=== PATIENT | male | born 1940 | race Caucasian/White ===

== ENCOUNTER 2016-07-09 09:33 | Outpatient (CLI) | payer MEDICARE, BC ==
[~2016-07-09] VITALS: Ht 177.8 cm; Wt 95.5 kg
--- NOTE | ~2016-07-09 | HEMODYNAMI ---
PATIENT:PAUL ANDRADE III MEDICAL RECORD: [id number] : 42 LOCATION:D.CAT ADMISSION DATE: 07/09/16 Generatedon:07/09/201612:53 Patient name: PAUL ANDRADE Patient #: [id number] SSN: : 1940 Date of study: 07/09/2016 Page: Of Hemodynamic Procedure Report Patient Data Patient Demographics Procedure consent was obtained First Name: PAUL Gender: Male Last Name: RAYMOND Suffix: III Middle Initial: A : 1940 Patient #: [id number] Age: 76 year(s) Race: Additional ID: [id number] Contact details Address: [facility] [place] State: [place] City: [place] Zip code: [address] Past Medical History History of disease Date Diagnosis Comments CAD CHF->BO[place] Hypertension LV dysfunction Allergies: No known allergies Admission Admission Data Admission Date: 07/09/2016 Admission Time: 9:33 Height (in.): 71 BSA: 2.15 (m2) Height (cm.): 180.34 BMI: 29.29 (kg/m2) Weight (lbs.): 210 Weight (kg.): 95.25 Lab Results Lab Result Date: 07/09/2016 Lab Result Time: 10:00 Biochemistry Name Units Result Min Max BUN mg/dl 19 --(----)*- 7 18 Creatinine mg/dl 0.9 --(-*--)-- 0.6 1.3 CBC Name Units Result Min Max Hematocrit % 52.9 --(---*)-- 42 54 Hemoglobin g/dl 18.6 --(----)-* 13.5 17.5 Procedure Procedure Types Cath Procedure Diagnostic Procedure [facility] w/Coronaries w/Grafts FFR/IVUS Intra-Coronary IVUS Initial PCI Procedure SVG-BMS/JIMMIE Initial Miscellaneous Procedures Moderate Sedation up to 45 minutes Procedure Description Procedure Date Procedure Date: 07/09/2016 Procedure Start Time: 12:20 Procedure End Time: 12:51 Procedure Staff Name Function Daron Ozuna MD Performing Physician Dian English RN Nurse Dhruv Miguel RT Monitor Criss Garcia RT Scrub Kevin Davis RT Monitor Procedure Data Cath Procedure Fluoroscopy Diagnostic fluoroscopy Total fluoroscopy Time: 9.8 time: 9.8 min min Diagnostic fluoroscopy Total fluoroscopy dose: dose: 1605 mGy 1605 mGy Contrast Material Contrast Material Type Amount (ml) Isovue 300 195 Entry Location Entry Primary Successful Side Size Upsize Upsize Entry Closure Succes sful Closure Location (Fr) 1 (Fr) 2 (Fr) Remarks Device Remarks Femoral Right 5 Fr 6 Fr Exoseal artery Short Estimated blood loss: 10 ml Diagnostic catheters Device Type Used For End Catheter Placement Cordis 5Fr Pigtail Procedure Catheter (MP) Cordis 5Fr JL 4.0 Procedure Catheter (MP) Cordis 5Fr 3DRC Catheter Procedure (MP) Diagnostic Infinity 5Fr Procedure AR 2 MOD catheter Procedure Complications No complications Procedure Medications Medication Administration Route Dosage Oxygen NC 2 l/min Lidocaine 2% added to field 20 Heparin Flush Bag added to field 2 bags (1000units/500ml NS) 0.9% NaCl I.V. 100 ml/hr Versed I.V. 1 mg Fentanyl I.V. 50 mcg Versed I.V. 1 mg Fentanyl I.V. 50 mcg Versed I.V. 1 mg Fentanyl I.V. 50 mcg Heparin Bolus I.V. 4000 units Nitroglycerin IC/IA I.C. 200 mcg Versed I.V. 1 mg Fentanyl I.V. 50 mcg Hemodynamics Rest BSA: 2.15 (m2) HGB: 18.6 (g/dl) O2 Consumption: Estimated: 242.48 (ml/min) O2 Co nsumption indexed: Estimated:112.78 (ml/min/m) Heart Rate: 64 (bpm) Snapshots Pre Cath Intra NCS Post Cath Vital Signs Time Heart Resp SPO2 etCO2 [id number] NIBP (mmHg) Rhythm Pain Sedation Rate (ipm) (%) (mmHg) (mmHg) Status Level (bpm) 11:59:21 62 16 98 0 0 156/88(134) Paced 0 (11) 10(A) , No pain 12:03:47 61 14 98 0 0 150/86(124) Paced 0 (11) 10(A) , No pain 12:08:05 64 16 97 0 0 137/80(116) Paced 0 (11) 10(A) , No pain 12:12:29 65 15 96 0 0 147/79(119) Paced 0 (11) 10(A) , No pain 12:16:56 67 16 96 0 0 145/78(95) Paced 0 (11) 10(A) , No pain 12:21:22 68 16 96 0 0 141/84(102) Paced 0 (11) 9(A) , No pain 12:25:40 68 15 95 0 0 143/87(121) Paced 0 (11) 9(A) , No pain 12:30:04 68 15 96 0 0 149/85(118) Paced 0 (11) 9(A) , No pain 12:34:35 63 14 96 0 0 155/78(119) Paced 0 (11) 9(A) , No pain 12:38:57 58 15 97 0 0 147/82(105) Paced 0 (11) 9(A) , No pain 12:43:23 66 16 96 0 0 137/78(107) Paced 0 (11) 9(A) , No pain 12:47:39 67 15 95 0 0 129/71(111) Paced 0 (11) 10(A) , No pain 12:51:59 65 12 96 0 0 146/83(111) Paced 0 (11) 10(A) , No pain Medications Time Medication Route Dose Verified Delivered Reason Notes Effectiveness by by 12:01:24 Oxygen NC 2 Daron Buffie used for l/min Laith English RN procedure 12:01:33 Lidocaine 2% added 20ml Daron Daron for local to vial Laith Ozuna MD anesthetic field 12:04:23 Heparin Flush added 2 Daron Daron used for Bag to bags Laith Ozuna MD procedure (1000units/500ml field NS) 12:04:33 0.9% NaCl I.V. 100 Daron Buffie Per physician ml/hr Laith English RN 12:17:21 Versed I.V. 1 mg Daron Buffie for sedation Laith English RN 12:17:27 Fentanyl I.V. 50 Daron Buffie for sedation mcg Laith English RN 12:20:27 Versed I.V. 1 mg Daron Buffie for sedation Laith English RN 12:20:31 Fentanyl I.V. 50 Daron Biggs for sedation mcg Laith English RN 12:23:50 Versed I.V. 1 mg Daron Biggs for sedation Laith English RN 12:23:54 Fentanyl I.V. 50 Daron Biggs for sedation mcg Laith English RN 12:30:45 Heparin Bolus I.V. 4000 Daron Biggs for verifi ed units Laith English RN anticoagulation with dr ozuna 12:43:17 Nitroglycerin I.C. 200 Daron Neri for IC/IA mcg Laith Ozuna MD vasodilation 12:43:25 Versed I.V. 1 mg Daron Neri for sedation Laith Ozuna MD 12:43:29 Fentanyl I.V. 50 Daron Neri for sedation mcg Laith Ozuna MD Procedure Log Time Note 11:38:31 Dhruv Miguel RT(R) sent for patient. Start room use. 11:38:32 Time tracking: Regular hours 11:38:37 Plan of Care:Hemodynamics will remain stable., Cardiac rhythm will remain stable., Comfort level will be maintained., Respiratory function will remain adequate., Patient/ family verbilizes understanding of procedure., Procedure tolerated without complication., Recovers from procedure without complications.. 11:50:41 Patient received from Pre/Post Procedure Room to CCL 1 Alert and oriented. Tansferred to table in Supine position. 11:50:43 Warm blankets applied, and samantha hugger turned on for patient comfort. 11:50:43 Correct patient and procedure confirmed by team. 11:50:45 Signed procedure consent form obtained from patient. 11:50:46 ECG and BP/O2 sat monitors applied to patient. 11:50:47 Full Disclosure recording started 11:52:56 H&P Date Dictated: 07/08/2016 Within 30 days and on chart., H&P Addendum completed by physician on day of procedure. (MUST COMPLETE FOR ALL OUTPATIENTS). 11:52:58 Pre-procedure instructions explained to patient. 11:53:02 Family in waiting room. 11:53:05 Patient NPO since Midnight. 11:53:16 Patient allergic to No known allergies 11:53:19 Is the patient allergic to Iodine/contrast media? No. 11:56:52 Vital chart was started 11:57:02 Rhythm: sinus rhythm 11:57:09 Is patient on blood thinner?Yes 11:57:11 ACC The patient was administered the following blood thiners within the last 24 hours: ACCPlavix 11:58:08 Patient diabetic? No. 11:58:12 Previous problem with sedation/anesthesia? No ? 11:58:13 Snore? Yes 11:58:14 Sleep apnea? No 11:58:15 Deviated septum? No 11:58:16 Opens mouth fully? Yes 11:58:17 Sticks out tongue? Yes 11:58:19 Airway obstruction? No ? 11:58:23 Dentures? No ? 11:58:27 Pre procedure: right dorsailis pedis pulse 1+ Palpable, but thready & weak; easily obliterated 11:58:29 Patient pain scale 0/10 ?. 11:58:37 IV patent on arrival in left forearm with 0.9% NaCl at [facility]. 11:58:40 Lab results completed and on chart. 11:58:44 Right groin area was prepped with chlora-prep and draped in sterile fashion 11:58:46 Alarms reviewed by R. N. 11:58:46 Sharps counted by scrub and verified by R.N. 12:01:24 Oxygen 2 l/min NC was administered by Dian English RN; used for procedure; 12:01:33 Lidocaine 2% 20ml vial added to field was administered by Daron Ozuna MD; for local anesthetic; 12:04:23 Heparin Flush Bag (1000units/500ml NS) 2 bags added to field was administered by Daron Ozuna MD; used for procedure; 12:04:33 0.9% NaCl 100 ml/hr I.V. was administered by Dian English RN; Per physician; 12:05:12 Baseline sample Acquired. 12:08:07 Zero performed for pressure channel P1 12:08:09 Zero performed for pressure channel P1 12:08:12 Zero performed for pressure channel P1 12:09:03 Lab Result : BUN 19 mg/dl 12:09:03 Lab Result : Creatinine 0.9 mg/dl 12:09:03 Lab Result : Hemoglobin 18.6 g/dl 12:09:03 Lab Result : Hematocrit 52.9 % 12:09:15 Use device set Femoral Dx 12:09:16 Tegaderm 4 x 4 opened to sterile field. 12:: Acist Manifold opened to sterile field. 12:: Acist Hand Control opened to sterile field. 12:: Acist Syringe opened to sterile field. 12:: Bag Decanter opened to sterile field. 12:: Medline Cath Pack opened to sterile field. 12:: Terumo 5Fr [place] Sheath opened to sterile field. 12:: Diagnostic Infinity 5Fr Multipack catheter opened to sterile field. 12:14: Patient Height : 71 cm 12:14:06 Patient Weight : 210 kg 12:: Physician arrived 12:: --------ALL STOP TIME OUT------ :: Final Timeout: patient, procedure, and site verified with staff and physician. All members of the team are in agreement. 12::45 Right groin site verified by team. 12::47 Physical assessment completed. ASA score P 2 - A patient with mild systemic disease as per Daron Ozuna MD. 12:16:50 Sedation plan: IV Moderate Sedation Versed, Fentanyl 12:17: Versed 1 mg I.V. was administered by Dian English RN; for sedation; 12::27 Fentanyl 50 mcg I.V. was administered by Dian English RN; for sedation; 12:20:17 Procedure started. 12::19 Local anesthetic to right femoral artery with Lidocaine 2% by Daron Ozuna MD.INITIAL ACCESS ONLY 12::27 Versed 1 mg I.V. was administered by Dian English RN; for sedation; 12:20:30 A 5 Fr sheath was inserted into the Right Femoral artery 12:20:31 Fentanyl 50 mcg I.V. was administered by Dian English RN; for sedation; 12:21:38 A Cordis 5Fr Pigtail Catheter (MP) was advanced over the wire and used for Procedure. 12:22:40 LV gram done using MESSINA 12::45 Injector settings: Ml/sec: 10, Volume: 20, 12:22:52 EF : 30 % 12::55 Catheter exchanged over wire. 12:23:07 A Cordis 5Fr JL 4.0 Catheter (MP) was advanced over the wire and used for Procedure. 12::50 Versed 1 mg I.V. was administered by Dian English RN; for sedation; 12::54 Fentanyl 50 mcg I.V. was administered by Dian English RN; for sedation; 12:24:03 LCA angiography performed. 12:24:50 Catheter exchanged over wire. 12::54 A Cordis 5Fr 3DRC Catheter (MP) was advanced over the wire and used for Procedure. 12:25:37 NAVAS to LAD angiography performed. 12::07 Catheter exchanged over wire. 12:27:12 A Diagnostic Infinity 5Fr AR 2 MOD catheter was advanced over the wire and used for Procedure. 12:27:32 SVG to RCA angiography performed. 12:28:08 St Sandip 260cm J .035 wire opened to sterile field. 12:28:24 Inspivia BasixCompak Inflation Kit opened to sterile field. 12:28:25 Smith Whisper J 300cm 0.014 guide wire opened to sterile field. 12:28:25 Roodhouse [place] IVUS Catheter opened to sterile field. 12:29:00 SVG to Diag angiography performed. 12:30:45 Heparin Bolus 4000 units I.V. was administered by Dian English RN; for anticoagulation; verified with dr ozuna 12:31:17 [place] RCA totally occluded 12:31:23 Catheter removed. 12:31:29 Terumo 6Fr [place] Sheath opened to sterile field. 12:31:36 Sheath upsized to a 6 Fr Short. 12:32:07 Medtronic Launcher 6Fr AR 2.0 SH guide catheter opened to sterile field. 12:32:42 6 Fr ar 2 sh guide catheter was inserted over the wire 12:32:45 whisper wire advanced. 12:33:12 Wire advanced across lesion. 12:33:15 IVUS catheter advanced over wire. 12:34:19 IVUS pass to SVG to RCA lesion performed. 12:34:57 IVUS catheter removed over wire. 12:37:23 Inflation number: 1 A [place] [employer] Cassia 3.5 X 30 balloon was prepped and advanced across the Aorta Right -> Dist RCA, then inflated to 21 BEVERLEY for 0:10 (min:sec). 12:37:43 multiple inflations to 21 atms made 12:38:44 Balloon removed over the wire. 12:39:25 Wire redirected to SVG to DIAG. 12:39:42 Wire advanced across lesion. 12:42:27 Inflation Number: 1 A Medtronic Integrity 2.25 X 22 stent was prepped and advanced across the Aorta Left -> 1st Diag. The stent was deployed at 13 BEVERLEY for 0:10 (min:sec). 12:43:17 Nitroglycerin IC/IA 200 mcg I.C. was administered by Daron Ozuna MD; for vasodilation; 12:43:25 Versed 1 mg I.V. was administered by Daron Ozuna MD; for sedation; 12:43:29 Fentanyl 50 mcg I.V. was administered by Daron Ozuna MD; for sedation; 12:44:42 Wire removed. 12:44:44 Stent catheter was removed intact over wire. 12:44:44 Guide catheter removed. 12:45:08 Cordis 6Fr Exoseal opened to sterile field. 12:45:53 Sheath removed intact; hemostasis achieved with Exoseal to the Right Femoral artery. 12:45:55 Procedure ended.(Physican Out) 12:48:21 Fluoroscopy time 09.80 minutes. 12:48:29 Flurop Dose total: 1605 12:48:29 Fluoroscopy dose: 1605 mGy 12:48:35 Contrast amount:Isovue 300 195ml. 12:48:36 Sharps counted by scrub and verified by R.N. 12:48:41 Insertion/operative site no bleeding no hematoma. 12:48:43 Post-op/insertion site Right Femoral artery dressed using a 4 x 4 and Tegaderm. 12:48:47 Post right femoral artery:stable, soft, clean and dry 12:48:49 Post Procedure Pulses reassessed and unchanged 12:48:52 Post-procedure physical assessment completed. ASA score P 2 - A patient with mild systemic disease as per Daron Ozuna MD. 12:48:55 Post procedure rhythm: unchanged. 12:48:57 Estimated blood loss: 10 ml 12:48:58 Post procedure instruction explained to patient.Patient verbalizes understanding. 12:49:02 Patient needs reinforcement of post procedure teaching. 12:49:32 Procedure type changed to Cath procedure, Diagnostic procedure, LHC, LHC w/Coronaries w/Grafts, FFR/IVUS, Intra-Coronary IVUS Initial, PCI procedure, SVG-BMS/JIMMIE Initial, Miscellaneous Procedures, Moderate Sedation up to 45 minutes 12:51:15 Procedure and supply charges have been captured, reviewed, submitted and are correct. 12:51:19 Procedure Complication : No complications 12:51:22 Vital chart was stopped 12:51:22 See physician's report for complete and final results. 12:51:24 Report given to Pre/Post Procedure Room. 12:51:42 Patient transfered to Pre/Post Procedure Room with Stretcher. 12:51:45 Procedure ended. 12:51:45 Full Disclosure recording stopped 12:51:48 End room use (Document Last) Intervention Summary Intervention Notes Time ActionType Lesion and Equipment Action# Pressure Duration Attributes Used 12:37:23 Inflate Aorta Right [place] 1 21 00:10 balloon -> Dist RCA Sci Cassia 3.5 X 30 balloon 12:42:27 Place stent Aorta Left Medtronic 1 13 00:10 -> 1st Diag Integrity 2.25 X 22 stent Device Usage Item Name Manufacture Quantity Catalog Number Hospital Part Current Mini mal Lot# / Charge Number Stock Stock Serial# Code Tegade 4 3M 1 [id number] [id number] 5 x 4 Acist Acist 1 06464 483789 388599 505541 5 Manifold [employer] Inc Acist Hand Acist 1 53592 590215 171768 426075 5 Control Medical Systems Inc Acist Acist 1 73952 401284 392892 736053 20 Syringe Medical Systems Inc Bag Microtek 1 2002S 060451 20929 081362 5 [facility] Inc[facility] Medline Cardinal 1 [id number] 139400 91527 163799 5 Cath Pack Health Terumo 5Fr Terumo 1 [id number] 614922 134655 200698 40 [place] Sheath Diagnostic Cardinal 1 [id number] 614433 90189 515487 30 trip.meity Health 5Fr Multipack catheter Cordis 5Fr Cardinal 1 [id number] 5 Pigtail Health Catheter (MP) Cordis 5Fr Cardinal 1 [id number] 5 JL 4.0 Health Catheter (MP) Cordis 5Fr Cardinal 1 459200 5 3DRC Health Catheter (MP) Diagnostic Cardinal 1 [id number] 306239 864753 723780 20 trip.meity Health 5Fr AR [address] St Sandip 1 475058 756064 902265 300530 30 260cm J .035 wire Merit Merit 1 EW9234 218909 866582 295599 15 BasixCompak Medical Inflation Kit Smith Smith 1 [id number] 367481 228800 999198 5 Whisper J Vascular 300cm 0.014 guide wire Roodhouse Roodhouse 1 [id number] 884073 682812 914664 8 [place] IVUS Catheter Terumo 6Fr Terumo 1 [id number] 914624 273116 895702 40 [place] Sheath Medtronic Medtronic 1 [id number] 426498 45382 019344 1 Launcher 6Fr AR 2.0 SH guide catheter [place] Sci [place] 1 [id number] 228261 408817 761119 1 [id number] Cassia Scientific 3.5 X 30 balloon Medtronic Medtronic 1 [id number] 498165 761548 3 [id number] Integrity 2.25 X 22 stent Cordis 6Fr Cardinal 1 [id number] 751463 003448 253298 10 [facility] Health Signature Audit [place] Stage Time Signature Unsigned Intra-Procedure 07/09/2016 Kevin Davis 12:53:06 PM RT(R) Signatures Monitor : Dhruv Miguel RT Signature : Date : Time : Monitor : Kevin Davis RT Signature : Date : Time : [facility] [address] [place] [address]
[~2016-07-09 09:33] MED LIST: BAYER CHEWABLE81 MG PO; BENICAR20 MG PO; BUMEX2 MG PO; BYSTOLIC5 MG PO; CORDARONE200 MG PO; COREG CR10 MG PO; COREG6.25 MG PO; DOXYCYCLINE HY100 M2; FLOMAX0.4 MG PO; ISOSORBIDE DINI30 MG PO; LASIX80 MG PO; LOMOTIL TABLET1 TAB PO; NARCAN INJ0.4 MG/ML IV; NITROSTAT0.4 MG SL; PLAVIX75 MG PO; PREDNISONE10 MG PO; PRILOSEC10 MG PO; PRILOSEC20 MG PO; UROXATRAL10 MG PO; VASOTEC10 MG; VASOTEC20 MG PO; VIAGRA25 MG; ZYLOPRIM300 MG PO
[2016-07-09] MEDS ORDERED: BETAPACE 80 MG80 MG PO (09:53)
[2016-07-09] MEDS ORDERED: DIOVAN80 MG PO (09:54)
[2016-07-09 10:01] VITALS: BP 129/70; Ht 177.8 cm; Wt 95.5 kg
[2016-07-09 10:10] LABS: BASOPHILS 0.3 % (0-2); EOSINOPHILS 1.6 % (0-7); HEMATOCRIT 52.9 % (42.0-54.0); HEMOGLOBIN 18.6 g/dL (13.5-17.5); IMMATURE GRANULOCYTES 0.2 % (0-5); LYMPHOCYTES 30.7 % (15-50); MCH 33.6 pg (26.0-34.0); MCHC 35.2 g/dL (31.0-37.0); MCV 95.7 fL (80.0-100.0); MEAN PLATELET VOLUME 11.7 fL (7.4-10.4); MONOCYTES 12.4 % (2-11); NEUTROPHILS 54.8 % (40-80); RBC 5.53 10x6/uL (4.20-6.10); RDW 14.3 % (11.5-14.5); WBC 6.2 10x3/uL (4.8-10.8)
[2016-07-09 10:23] LABS: PLATELET COUNT 140 10x3/uL (130-400)
[2016-07-09 10:51] LABS: CALC OSMOLALITY 280 mosm/kg (275-300); CALCIUM 9.1 mg/dL (8.5-10.1); CARBON DIOXIDE 25.9 mmol/L (21.0-32.0); CHLORIDE - SERUM 103 mmol/L (98-107); CREATININE - SERUM 0.9 mg/dL (0.6-1.3); GLUCOSE 123 mg/dL (74-106); POTASSIUM - SERUM 3.7 mmol/L (3.5-5.1); SODIUM 139 mmol/L (136-145); UREA NITROGEN 19 mg/dL (7-18); eGFR NON AFRICAN AMERICAN 87 mL/min (90-120)
--- NOTE | 2016-07-09 13:15 | NUR ---
RIGHT GROIN CDI, NO HEMATOMA OR BLEEDING NOTED. RESTING
--- NOTE | 2016-07-09 13:45 | NUR ---
RIGHT GROIN CDI, NO HEMATOMA OR BLEEDING AT SITE. RESTING VSS
--- NOTE | 2016-07-09 17:00 | NUR ---
D'C HOME IN PRIVATE CAR WITH FRIEND.
--- NOTE | 2016-07-10 07:36 | OP ---
PATIENT NAME: PAUL ANDRADE III MEDICAL RECORD: [id number] :42 LOCATION:D.CAT ADMISSION DATE: SURGEON: HYACINTH SALAZAR MD DATE OF OPERATION: 07/09/2016 PROCEDURES: 1. PTCA, vein graft to RCA. 2. PTCA stent vein graft to the LAD diagonal. 3. Intravascular ultrasound. 4. Left heart catheterization. 5. Selective coronary angiography. 6. Vein graft angiography. 7. NAVAS angiography. 8. Left ventriculogram. INDICATION: Angina and coronary artery disease. PROCEDURE IN DETAIL: After informed consent was obtained and after detailed explanation of risks, benefits as well as alternative therapies, the patient elected to proceed with angiogram and angioplasty. The right femoral area is prepped and draped in normal sterile fashion. Right femoral artery was cannulated via modified Seldinger technique with placement of 6-Azeri sheath. All catheters exchanged through this sheath. FINDINGS: The left ventriculogram was performed in the standard 30-degree MESSINA view reveals global hypokinesis throughout all segments. Overall ejection fraction is 30%. SELECTIVE CORONARY ANGIOGRAPHY: 1. Left main showed no significant angiographic disease. 2. Left anterior descending is totally occluded in the mid vessel. 3. NAVAS to the LAD is widely patent. 4. Left circumflex has moderate irregularities; however, the first obtuse marginal was totally occluded. 5. There is a vein graft segment going from the second obtuse marginal to the first obtuse marginal. This is patent. The vein graft is closed at the aorta. 6. Right coronary is totally occluded. 7. Vein graft to the right coronary is patent. There are previously placed stents with greater than 70% in-stent restenosis at one point confirmed by intravascular ultrasound. 8. There is a vein graft to the LAD diagonal that is a small but 90% stenosis at the ostium throughout. PTCA STENT OF THE VEIN GRAFT TO THE LAD DIAGONAL: The stent used was 2.25 x 22 mm Resolute. Result was 0% residual stenosis. HIGH PRESSURE PTCA OF THE VEIN GRAFT TO THE RCA: The balloon used was 2.5 x 30, multiple inflations were made to 17 atmospheres. Result was 0% residual. OVERALL IMPRESSION: Successful percutaneous transluminal coronary angioplasty stent of the vein graft to the diagonal and successful percutaneous transluminal coronary angioplasty of the vein graft to RCA, both going from 70% to 90% initial stenosis to 0% residual. TRANSINT:[id number] Voice Confirmation ID: [id number] DOCUMENT ID: [id number] OPERATIVE REPORT [id number] PAUL ANDRADE III, JEFFREY MD at 0736 CC: [id number] DICTATION DATE: 07/09/16 1250 [employer]: 07/09/162111 DEP CLI 07/09/16 [place] [id number] [place] [id number]
== END 2016-07-09 17:00 | disposition home or self-care (01) ==
LOC: D.CATH 09:33
PROVIDERS: Internal Medicine Interventional Cardiology
DX: I25.119 Atherosclerotic heart disease of native coronary artery with unspecified angina pectoris (principal); I25.719 Atherosclerosis of autologous vein coronary artery bypass graft(s) with unspecified angina pectoris; T82.855A Stenosis of coronary artery stent, initial encounter
CPT/HCPCS: 92937; 93459; 92978; C9604

== ENCOUNTER 2017-05-26 07:56 | Outpatient (CLI) | payer MEDICARE, BC ==
[~2017-05-26] VITALS: Ht 177.8 cm; Wt 93.2 kg
--- NOTE | ~2017-05-26 | HEMODYNAMI ---
PATIENT:PAUL ANDRADE III MEDICAL RECORD: [id number] : 42 LOCATION:D.CAT ADMISSION DATE: 05/26/17 Generatedon:05/26/201710:15 Patient name: PAUL ANDRADE Patient #: [id number] SSN: : 1940 Date of study: 05/26/2017 Page: Of Hemodynamic Procedure Report Patient Data Patient Demographics Procedure consent was obtained First Name: PAUL Gender: Male Last Name: RAYMOND Suffix: RADHA Middle Initial: A : 1940 Patient #: [id number] Age: 77 year(s) Race: Additional ID: [id number] Contact details Address: [address] [place] [address] [place] State: [place] City: [place] Zip code: [address] Past Medical History History of disease Date Diagnosis Comments CAD CHF->[place] Hypertension LV dysfunction Allergies: No known allergies Admission Admission Data Admission Date: 05/26/2017 Admission Time: 7:56 Procedure Procedure Types Cath Procedure Diagnostic Procedure LHC LHC w/Coronaries w/Grafts PCI Procedure Coronary Stent Coronary Stent Initial Peripheral Cath Diagnostic Procedure Abd/Extremity Aortagram Procedure Description Procedure Date Procedure Date: 05/26/2017 Procedure Start Time: 9:42 Procedure End Time: 10:13 Procedure Staff Name Function Daron Ozuna MD Performing Physician Michael Harris RN Nurse Kevin Davis RT Scrub Dhruv Miguel RT Monitor Procedure Data Cath Procedure Fluoroscopy Diagnostic fluoroscopy Total fluoroscopy Time: time: 10.1 min 10.1 min Diagnostic fluoroscopy Total fluoroscopy dose: 765 dose: 765 mGy mGy Contrast Material Contrast Material Type Amount (ml) Isovue 300 177 Entry Location Entry Primary Successful Side Size Upsize Upsize Entry Closure Succes sful Closure Location (Fr) 1 (Fr) 2 (Fr) Remarks Device Remarks Femoral Right 5 Fr 6 Fr Exoseal artery Short Estimated blood loss: 10 ml Diagnostic catheters Device Type Used For End Catheter Placement MULTIPACK 3DRC 5Fr Procedure catheter MULTIPACK Pigtail 5 Fr Procedure catheter MULTIPACK JL 4.0 5Fr Procedure catheter DIAGNOSTIC AR 2 MOD 5 Fr Procedure catheter ([id number]) Procedure Complications No complications Procedure Medications Medication Administration Route Dosage Oxygen etCO2 Nasal cannula 2 l/min Heparin Flush Bag added to field 2 bags (1000units/500ml NS) 0.9% NaCl I.V. 100 ml/hr Fentanyl I.V. 50 mcg Versed I.V. 1 mg Fentanyl I.V. 50 mcg Versed I.V. 1 mg Heparin Bolus I.V. 4000 units Fentanyl I.V. 25 mcg Fentanyl I.V. 25 mcg Fentanyl I.V. 25 mcg Hemodynamics Rest Heart Rate: 62 (bpm) Pressure Samples Time Site Value (mmHg) Purpose Heart Use Rate(bpm) 9:52 AO 110/64(82) Snapshot 67 Snapshots Pre Cath Intra NCS Post Cath Vital Signs Time Heart Resp SPO2 etCO2 NIBP (mmHg) Rhythm Pain Sedation Rate (ipm) (%) (mmHg) Status Level (bpm) 9:24:05 68 16 91 0 127/82(101) NSR 0 (11) 10(A) , No pain 9:29:12 66 17 93 0 120/71(94) NSR 0 (11) 10(A) , No pain 9:47:59 66 16 91 8.2 117/65(86) NSR 0 (11) 9(A) , No pain 9:52:15 67 16 93 10.4 121/70(86) NSR 0 (11) 9(A) , No pain 9:56:35 66 16 94 26.1 129/66(104) NSR 0 (11) 9(A) , No pain 10:00:51 77 17 92 23.8 109/64(79) NSR 0 (11) 9(A) , No pain 10:05:05 66 16 94 21.6 116/67(101) NSR 0 (11) 9(A) , No pain 10:09:23 62 16 94 19.4 126/66(95) NSR 0 (11) 9(A) , No pain 10:13:35 64 12 94 22.4 121/71(99) NSR 0 (11) 9(A) , No pain Medications Time Medication Route Dose Verified Delivered Reason Notes Effectiveness by by 9:37:41 Oxygen etCO2 2 Daron Rodriguez Per physician Nasal l/min Laith Harris RN cannula 9:37:51 Heparin Flush added 2 Daron Shahy used for Bag to bags Laith Harris RN procedure (1000units/500ml field NS) 9:38:05 0.9% NaCl I.V. 100 Daron Michael Per physician ml/hr Laith Harris RN 9:38:42 Fentanyl I.V. 50 Daron Michael for sedation mcg Laith Harris RN 9:38:50 Versed I.V. 1 mg Daron Michael for sedation Laith Harris RN 9:42:29 Fentanyl I.V. 50 Daron Michael for sedation mcg Laith Harris RN 9:42:33 Versed I.V. 1 mg Daron Michael for sedation Laith Harris RN 9:52:19 Fentanyl I.V. 25 Daron Michael for sedation mcg Laith Harris RN 9:56:14 Heparin Bolus I.V. 4000 Daron Michael for units Laith Harris RN anticoagulation 9:56:17 Fentanyl I.V. 25 Daron Michael for sedation mcg Laith Harris RN 10:00:54 Fentanyl I.V. 25 Daron Michael for sedation mcg Laith Harris RN Procedure Log Time Note 8:59:01 Kevin Davis RT(R) sent for patient. Start room use. 8:59:01 Time tracking: Regular hours (M-F 7:00 - 5:00) 8:59:05 Plan of Care:Hemodynamics will remain stable., Cardiac rhythm will remain stable., Comfort level will be maintained., Respiratory function will remain adequate., Patient/ family verbilizes understanding of procedure., Procedure tolerated without complication., Recovers from procedure without complications.. 9:16:09 Patient received from Pre/Post Procedure Room to CCL 3 Alert and oriented. Tansferred to table in Supine position. 9:16:10 Warm blankets applied, and samantha hugger turned on for patient comfort. 9:16:11 Correct patient and procedure confirmed by team. 9:16:12 Signed procedure consent form obtained from patient. 9:16:13 ECG and BP/O2 sat monitors applied to patient. 9:16:24 H&P Date Dictated: 05/14/2017 Within 30 days and on chart., H&P Addendum completed by physician on day of procedure. (MUST COMPLETE FOR ALL OUTPATIENTS). 9:16:26 Pre-procedure instructions explained to patient. 9:16:26 Pre-op teaching completed and patient verbalized understanding. 9:16:29 Family in waiting room. 9:16:31 Patient NPO since Midnight. 9:16:36 Patient allergic to No known allergies 9:22:52 Vital chart was started 9:31:02 Baseline sample Acquired. 9:31:08 Rhythm: paced 9:31:11 Full Disclosure recording started 9:31:41 Is the patient allergic to Iodine/contrast media? No. 9:31:42 Is patient on blood thinner?Yes 9:31:45 ACC The patient was administered the following blood thiners within the last 24 hours: ACCPlavix 9:31:48 Patient diabetic? No. 9:31:51 Previous problem with sedation/anesthesia? No ? 9:31:56 Snore? Yes 9:31:57 Sleep apnea? No 9:31:58 Deviated septum? No 9:31:59 Opens mouth fully? Yes 9:32:00 Sticks out tongue? Yes 9:32:01 Airway obstruction? No ? 9:32:05 Dentures? No ? 9:32:11 Pre procedure: right dorsailis pedis pulse 1+ Palpable, but thready & weak; easily obliterated 9:32:14 Patient pain scale 0/10 ?. 9:32:22 IV patent on arrival in left forearm with 0.9% NaCl at KVO. 9:32:25 Lab results completed and on chart. 9:32:27 Right groin area was prepped with chlora-prep and draped in sterile fashion 9:32:28 Alarms reviewed by R. N. 9:32:29 Sharps counted by scrub and verified by R.N. 9:37:41 Oxygen 2 l/min etCO2 Nasal cannula was administered by Michael Harris RN; Per physician; 9:37:51 Heparin Flush Bag (1000units/500ml NS) 2 bags added to field was administered by Michael Harris RN; used for procedure; 9:38:05 0.9% NaCl 100 ml/hr I.V. was administered by Michael Harris RN; Per physician; 9:38:16 --------ALL STOP TIME OUT------ 9:38:17 Final Timeout: patient, procedure, and site verified with staff and physician. All members of the team are in agreement. 9:38:23 Right groin site verified by team. 9:38:25 Physical assessment completed. ASA score P 2 - A patient with mild systemic disease as per Daron Ozuna MD. 9:38:29 Sedation plan: IV Moderate Sedation Medication:Versed, Fentanyl 9:38:42 Fentanyl 50 mcg I.V. was administered by Michael Harris RN; for sedation; 9:38:47 Use device set Femoral Dx 9:38:49 Tegaderm 4 x 4 (1626W) opened to sterile field. 9:38:50 Versed 1 mg I.V. was administered by Michael Harris RN; for sedation; 9:38:50 ACIST Manifold (57137) opened to sterile field. 9:38:51 ACIST Hand Control (24113) opened to sterile field. 9:38:52 ACIST Syringe (71110) opened to sterile field. 9:38:53 Bag Decanter (2002S) opened to sterile field. 9:38:53 Medline Cath Pack ([id number]) opened to sterile field. 9:39:04 PERCUTANEOUS ENTRY 19GA needle opened to sterile field. 9:39:05 DIAGNOSTIC Multipack 5Fr catheter set (QI9512) opened to sterile field. 9:39:06 DIAGNOSTIC WIRE .035 260cm J wire (798519) opened to sterile field. 9:39:15 SHEATH Prelude 5Fr 0.035 (ZYU-6E-53-035) opened to sterile field. 9:42:09 Procedure started. 9:42:29 Fentanyl 50 mcg I.V. was administered by Michael Harris RN; for sedation; 9:42:33 Versed 1 mg I.V. was administered by Michael Harris RN; for sedation; 9:42:33 Local anesthetic to right femoral artery with Lidocaine 2% by Daron Ozuna MD.INITIAL ACCESS ONLY 9:45:09 AMPLATZ Super Stiff 75cm wire ([id number]) opened to sterile field. 9:45:21 A 5 Fr sheath was inserted into the Right Femoral artery 9:45:51 Amplatz wire used to insert sheath. 9:46:15 GLIDE WIRE Super Stiff Angled 260cm (RJ1145) opened to sterile field. 9:46:15 TORQUE DEVICE PLASTIC .038 ( TD01) opened to sterile field. 9:46:33 Glidewire advanced. 9:46:57 A MULTIPACK 3DRC 5Fr catheter was advanced over the wire and used for Procedure. 9:47:48 NAVAS to LAD angiography performed. 9:48:46 Catheter exchanged over wire. 9:48:52 A MULTIPACK Pigtail 5 Fr catheter was advanced over the wire and used for Procedure. 9:49:11 LV angiography performed. 9:49:17 LV gram done using MESSINA 9:49:26 EF : 20 % 9:49:43 Injector settings: Ml/sec: 10, Volume: 20, 9:49:55 Abdominal Aortagram was performed. 9:50:00 Catheter exchanged over wire. 9:50:08 A MULTIPACK JL 4.0 5Fr catheter was advanced over the wire and used for Procedure. 9:51:06 LCA angiography performed. 9:51:20 Catheter exchanged over wire. 9:51:32 A DIAGNOSTIC AR 2 MOD 5 Fr catheter ([id number]) was advanced over the wire and used for Procedure. 9:52:18 RCA angiography performed. 9:52:19 Fentanyl 25 mcg I.V. was administered by Michael Harris RN; for sedation; 9:52:48 SVG to Circ angiography performed. 9:53:03 SVG to RCA angiography performed. 9:53:07 Catheter exchanged over wire. 9:53:11 Use device set TAU PCI 9:53:20 GUIDE 6FR AR 1.0 SH catheter ([id number]) opened to sterile field. 9:53:39 INFLATOR Merit BasixCompak (WP4653) opened to sterile field. 9:54:12 SHEATH Prelude 6Fr 0.035 (KCO-5Y-34-035) opened to sterile field. 9:55:04 CHOICE PT Extra Support 182cm wire ([id number]) opened to sterile field. 9:55:28 Sheath upsized to a 6 Fr Short. 9:55:51 6 Fr AR 1 SH guide catheter was inserted over the wire 9:56:07 Choice PT XS wire advanced. 9:56:14 Heparin Bolus 4000 units I.V. was administered by Michael Harris RN; for anticoagulation; 9:56:17 Fentanyl 25 mcg I.V. was administered by Michael Harris RN; for sedation; 9:57:58 Wire advanced across lesion. 9:59:09 The KIMBERLY RX 2.0 x 12 stent ([id number]) was advanced then removed because of failure to cross lesion 10:00:29 Inflate balloon Inflation number: 1 A EUPHORA 2.0 x 10 Balloon ([id number]) was prepped and advanced across the Aorta Left -> Dist CX, then inflated to 11 BEVERLEY for 0:10 (min:sec). 10:00:54 Fentanyl 25 mcg I.V. was administered by Michael Harris RN; for sedation; 10:01:33 Multiple inflations made at 13 Atms. 10:04:00 Balloon re-inserted over wire. 10:04:13 Place stent Inflation Number: 2 A KIMBERLY RX 2.0 x 12 stent ([id number]) was prepped and advanced across the Aorta Left -> Dist CX. The stent was deployed at 13 BEVERLEY for 0:10 (min:sec). 10:05:36 Stent catheter was removed intact over wire. 10:05:59 Wire removed. 10:05:59 Guide catheter removed. 10:06:28 EXOSEAL 6Fr (EX600) opened to sterile field. 10:06:50 Sheath removed intact; hemostasis achieved with Exoseal to the Right Femoral artery. 10:06:52 Procedure ended.(Physican Out) 10:07:08 Fluoroscopy time 10.10 minutes. 10:07:12 Fluoroscopy dose: 765 mGy 10:07:12 Flurop Dose total: 765 10:07:16 Contrast amount:Isovue 300 177ml. 10:07:17 Sharps counted by scrub and verified by R.N. 10:11:12 Insertion/operative site no bleeding no hematoma. 10:11:15 Post-op/insertion site Right Femoral artery dressed using a 4 x 4 and Tegaderm. 10:11:16 Post Procedure Pulses reassessed and unchanged 10:11:18 Post-procedure physical assessment completed. ASA score P 2 - A patient with mild systemic disease as per Daron Ozuna MD. 10:11:20 Post procedure rhythm: unchanged. 10:11:23 Estimated blood loss: 10 ml 10:11:25 Post procedure instruction explained to patient.Patient verbalizes understanding. 10:11:26 Patient needs reinforcement of post procedure teaching. 10:11:58 Procedure type changed to Cath procedure, Diagnostic procedure, LHC, LHC w/Coronaries w/Grafts, PCI procedure, Coronary Stent, Coronary Stent Initial, Peripheral Cath Diagnostic Procedure, Abd/Extremity, Aortagram 10:12:48 Procedure and supply charges have been captured, reviewed, submitted and are correct. 10:12:51 Procedure Complication : No complications 10:12:54 Vital chart was stopped 10:12:54 See physician's report for complete and final results. 10:12:57 Report given to Pre/Post Procedure Room. 10:13:00 Patient transfered to Pre/Post Procedure Room with Stretcher. 10:13:02 Procedure ended. 10:13:02 Full Disclosure recording stopped 10:15:15 End room use (Document Last) Intervention Summary Intervention Notes Time ActionType Lesion and Equipment Used Action# Pressure Duration Attributes 9:59:09 Discard KIMBERLY RX 2.0 x Stent 12 stent ([id number]) 10:00:29 Inflate Aorta Left EUPHORA 2.0 x 1 11 00:10 balloon -> Dist CX 10 Balloon ([id number]) 10:04:13 Place stent Aorta Left KIMBERLY RX 2.0 x 2 13 00:10 -> Dist CX 12 stent ([id number]) Device Usage Item Name Manufacture Quantity Catalog Number Hospital Part Current Minimal Lot# / Charge Number Stock Stock Serial# Code Tegaderm 4 x 4 3M 1 1626W 275590 254519 [id number] 5 (1626W) ACIST Manifold Acist 1 41495 793761 291982 826112 5 (82418) Medical Systems Inc ACIST Hand Acist 1 60690 777908 170779 582647 5 Control (54899) [employer] Inc ACIST Syringe Acist 1 54946 826984 384355 398341 20 (12170) Medical Systems Inc Bag Decanter Microtek 1 2001S 098777 65956 954202 5 (2001S) Medical Inc. Medline Cath Cardinal 1 [id number] 207463 21272 383643 5 Pack Health ([id number]) PERCUTANEOUS Cook Medical 1 W38960 453783 003681 5 ENTRY 19GA needle DIAGNOSTIC Cardinal 1 OK4787 103333 09444 455601 30 Multipack 5Fr Health catheter set (DM9727) DIAGNOSTIC WIRE St Sandip 1 469856 768825 157226 688655 30 .035 260cm J wire (787916) SHEATH Prelude Merit 1 CXH-6D-29-035 545805 230830 916560 5 5Fr 0.035 Medical (KGV-3W-52-035) AMPLATZ Super Franklin 1 [id number] 278551 576837 312615 5 Stiff 75cm wire Scientific ([id number]) GLIDE WIRE Terumo 1 GV2626 349350 486090 114719 5 Super Stiff Angled 260cm (TH1045) TORQUE DEVICE Franklin 1 TD01 250843 460331 822853 5 PLASTIC .038 ( Scientific TD01) MULTIPACK 3DRC Cardinal 1 552030 5 5Fr catheter Health MULTIPACK Cardinal 1 114641 5 Pigtail 5 Fr Health catheter MULTIPACK JL Cardinal 1 093776 5 4.0 5Fr Health catheter DIAGNOSTIC AR 2 Cardinal 1 [id number] 467174 592510 010930 20 MOD 5 Fr Health catheter (472960B) GUIDE 6FR AR Medtronic 1 [id number] 919628 26755 344536 1 1.0 SH catheter ([id number]) INFLATOR Merit Merit 1 QM4062 658636 084950 437039 15 BasixCompak Medical (BG9220) SHEATH Prelude Merit 1 JKL-2X-49-35 742361 4240363 189677 5 6Fr 0.035 Medical (JQK-0H-64-035) CHOICE PT Extra Franklin 1 [id number] 069430 761723 195698 5 Support 182cm Scientific wire ([id number]) KIMBERLY RX 2.0 x Medtronic 1 [id number] 151413 8574963 488809 5 [id number] 12 stent ([id number]) EUPHORA 2.0 x Medtronic 1 [id number] 267260 055150 908308 5 [id number] 10 Balloon ([id number]) EXOSEAL 6Fr Cardinal 1 EX600 367290 016548 458739 10 (EX600) Health Signature Audit [place] Stage Time Signature Unsigned Intra-Procedure 05/26/2017 Dhruv Miguel 10:15:38 AM RT(R) Signatures Monitor : Dhruv Miguel RT Signature : Date : Time : [id number] [place] [address]
--- NOTE | ~2017-05-26 | OP ---
PATIENT NAME: PAUL ANDRADE III MEDICAL RECORD: [id number] :42 LOCATION:D.CAT ADMISSION DATE: SURGEON: HYACINTH SALAZAR MD DATE OF OPERATION: 05/26/2017 PROCEDURES: 1. PTCA stent vein graft to the ramus intermedius. 2. Left heart catheterization. 3. Selective coronary angiography. 4. Vein graft angiography. 5. NAVAS angiography. 6. Abdominal aortography. INDICATION: Angina and coronary artery disease. PROCEDURE IN DETAIL: After informed consent was obtained and after a detailed description of the risks, benefits as well as alternative therapies, the patient elected to proceed with angiogram and angioplasty. The right femoral area was prepped and draped in normal sterile fashion. The right femoral artery was cannulated via modified Seldinger technique with placement of 6-Luxembourgish sheath. All catheters exchanged through this sheath. FINDINGS: 1. There was difficulty obtaining access from the iliacs to the abdominal aorta. We were able to do this with a Glidewire, 3DRC combination. Abdominal aortography revealed an ulcerated plaque in the abdominal aorta, but not flow limiting, no greater than 50%. 2. Left ventriculogram was performed in a standard 30-degree MESSINA view, reveals global hypokinesis, ejection fraction is 20%. SELECTIVE CORONARY ANGIOGRAPHY: 1. Left main showed significant angiographic disease. 2. Left anterior descending is totally occluded mid vessel. 3. NAVAS to the LAD is widely patent. Distal LAD is diffusely diseased, but widely patent. 4. Left circumflex is widely patent and the ramus intermedius was 100% stenosed. 5. Vein graft to the circumflex, ramus intermedius is patent; however, there is 95% stenosis in the distal shaft. 6. The right coronary artery is patent leading into the PLV. The vein graft to the right coronary artery is patent leading to the PDA. The previously placed stents are widely patent. PTCA STENT OF THE VEIN GRAFT TO THE RAMUS INTERMEDIUS: The stent used was a 2.0 x 12 mm [place]. Result was 0% residual stenosis. OVERALL IMPRESSION: Successful percutaneous transluminal coronary angioplasty stent of the vein graft to the circumflex, ramus intermedius going from 95% initial stenosis to 0% residual. TRANSINT:[id number] Voice Confirmation ID: [id number] DOCUMENT ID: [id number] OPERATIVE REPORT [id number] ANDRADE,HYACINTH HAMILTON III, MD at 0956 CC: [id number] DICTATION DATE: 05/26/17 1014 DIRECTOR OF PUPIL PERSONNEL PROGRAM: 05/26/17 1356 DEP CLI 05/26/17 [id number] [place] [address]
[~2017-05-26 07:56] MED LIST changes: +BETAPACE 80 MG80 MG PO; +DIOVAN80 MG PO
[2017-05-26 08:34] VITALS: BP 127/57; Ht 177.8 cm; Wt 93.2 kg
[2017-05-26 08:55] LABS: ANION GAP 13.9 mmol/L (8-16); CALCIUM 9.1 mg/dL (8.5-10.1); CARBON DIOXIDE 28.2 mmol/L (21.0-32.0); CREATININE - SERUM 1.1 mg/dL (0.6-1.3); POTASSIUM - SERUM 3.1 mmol/L (3.5-5.1)
[2017-05-26 09:07] LABS: BASOPHILS 0.3 % (0-2); EOSINOPHILS 1.7 % (0-7); IMMATURE GRANULOCYTES 0.3 % (0-5); LYMPHOCYTES 22.2 % (15-50); MCH 33.6 pg (26.0-34.0); MCHC 35.3 g/dL (31.0-37.0); MCV 95.3 fL (80.0-100.0); MEAN PLATELET VOLUME 11.4 fL (7.4-10.4); MONOCYTES 13.7 % (2-11); NEUTROPHILS 61.8 % (40-80); PLATELET COUNT 130 10x3/uL (130-400); RBC 5.35 10x6/uL (4.20-6.10); RDW 14.1 % (11.5-14.5); WBC 6.5 10x3/uL (4.8-10.8)
== END 2017-05-26 14:25 | disposition home or self-care (01) ==
LOC: D.CATH 07:56
PROVIDERS: Internal Medicine Interventional Cardiology
DX: I25.119 Atherosclerotic heart disease of native coronary artery with unspecified angina pectoris (principal); I25.719 Atherosclerosis of autologous vein coronary artery bypass graft(s) with unspecified angina pectoris; Z01.812 Encounter for preprocedural laboratory examination
CPT/HCPCS: 93459; C9604

== ENCOUNTER 2018-08-10 13:27 | Observation (INO) | payer MEDICARE, BC ==
[~2018-08-10] VITALS: Ht 177.8 cm; Wt 96.4 kg
--- NOTE | ~2018-08-10 | DS ---
PATIENT:PAUL ANDRADE III :42 MEDICAL RECORD: [id number] DISCHARGE SUMMARY ADMISSION DATE: 08/10/18 DISCHARGE DATE: 08/11/18 DISCHARGE DATE OF SERVICE: 08/11/2018 DIAGNOSES: 1. Unstable angina. 2. Coronary artery disease. 3. Percutaneous transluminal coronary angioplasty stent, vein graft to the circumflex and [place] left anterior descending diagonal this admission. 4. Congestive heart failure. 5. Chronic systolic dysfunction. 6. Dilated cardiomyopathy. 7. ICD. 8. Paroxysmal atrial fibrillation. 9. Ventricular tachycardia. HOSPITAL COURSE: Mr. Andrade presents with unstable anginal symptomatology and class IV heart failure symptomatology. He underwent cardiac catheterization revealing critical disease of the vein graft to the circumflex as well as the LAD diagonal, underwent successful PTCA stent of both territories. He had no further anginal symptomatology upon discharge. His breathing was back to normal. Hence, he was at class 1 heart failure symptomatology, class 0 anginal symptomatology which was marked improvement. He was discharged home with no change in medications as he is already on aspirin and Plavix. He will follow up with [facility] in 1 month. TRANSINT:[id number] Voice Confirmation ID: [id number] DOCUMENT ID: [id number] HYACINTH SALAZAR MD CC: [id number] DICTATION DATE: 08/11/18 0952 MARKETING PRODUCTION SPECIALIST: 08/11/182249 DIS IN 08/11/18 [place] [address] [id number] [place] [id number]
--- NOTE | ~2018-08-10 | HEMODYNAMI ---
PATIENT:PAUL ANDRADE III MEDICAL RECORD: [id number] : 42 LOCATION:[facility] ADMISSION DATE: 08/10/18 Generatedon:08/10/201817:29 Patient name: PAUL ANDRADE Patient #: [id number] SSN: : 1940 Date of study: 08/10/2018 Page: Of Hemodynamic Procedure Report Patient Data Patient Demographics Procedure consent was obtained First Name: PAUL Gender: Male Last Name: RAYMOND Suffix: III Middle Initial: A : 1940 Patient #: [id number] Age: 78 year(s) Race: Additional ID: [id number] Contact details Address: [facility] [place] State: [place] City: [place] Zip code: [address] Past Medical History History of disease Date Diagnosis Comments CAD CHF->[place] Hypertension LV dysfunction Allergies: No known allergies Admission Admission Data Admission Date: 08/10/2018 Admission Time: 13:27 Weight (lbs.): 211.64 Weight (kg.): 96 Lab Results Lab Result Date: 08/10/2018 Lab Result Time: 0:00 Biochemistry Name Units Result Min Max BUN mg/dl 20 --(----)*- 7 18 Creatinine mg/dl 1 --(--*-)-- 0.6 1.3 eGFR ml/min 76.31272 *-(----)-- 90 120 NONAFRICAN CBC Name Units Result Min Max Hemoglobin g/dl 17.1 --(---*)-- 13.5 17.5 Procedure Procedure Types Cath Procedure Diagnostic Procedure LHC LHC w/Coronaries w/Grafts FFR/IVUS FFR Initial PCI Procedure Coronary Stent Coronary Stent Initial AMI/SVG/EMBLEM FUSER TENDER PTCA or Stent SVG-BMS/JIMMIE Initial Procedure Description Procedure Date Procedure Date: 08/10/2018 Procedure Start Time: 17:01 Procedure End Time: 17:28 Procedure Staff Name Function Daron Ozuna MD Performing Physician Precious Stiles RT Monitor Dhruv Miguel RT Scrub Dian English RN Nurse Procedure Data Cath Procedure Fluoroscopy Diagnostic fluoroscopy Total fluoroscopy Time: 6.2 time: 6.2 min min Diagnostic fluoroscopy Total fluoroscopy dose: dose: 2612 mGy 2612 mGy Contrast Material Contrast Material Type Amount (ml) Isovue 370 176 Entry Location Entry Primary Successful Side Size Upsize Upsize Entry Closure Succes sful Closure Location (Fr) 1 (Fr) 2 (Fr) Remarks Device Remarks Femoral Right 5 Fr 6 Fr Exoseal artery Short Estimated blood loss: 10 ml Diagnostic catheters Device Type Used For End Catheter Placement MULTIPACK Pigtail 5 Fr Procedure catheter MULTIPACK JL 4.0 5Fr Procedure catheter MULTIPACK 3DRC 5Fr Procedure catheter DIAGNOSTIC AR MOD 5Fr Procedure Catheter ([id number]) Procedure Complications No complications Procedure Medications Medication Administration Route Dosage Oxygen etCO2 Nasal cannula 2 l/min Lidocaine 2% added to field 20 Heparin Flush Bag added to field 2 bags (1000units/500ml NS) 0.9% NaCl I.V. 100 ml/hr Versed I.V. 2 mg Fentanyl I.V. 100 mcg Dobutamine I.V. drip 5 mcg/kg/min (500mg/250ml D5W) Versed I.V. 1 mg Fentanyl I.V. 50 mcg Heparin Bolus I.V. 4000 units Versed I.V. 1 mg Fentanyl I.V. 50 mcg Hemodynamics Rest HGB: 17.1 (g/dl) Heart Rate: 79 (bpm) Pressure Samples Time Site Value (mmHg) Purpose Heart Use Rate(bpm) 17:01 AO 6/3(4) Snapshot 73 17:10 AO 154/96(124) Snapshot 73 Snapshots Pre Cath Intra NCS Post Cath Vital Signs Time Heart Resp SPO2 etCO2 NIBP (mmHg) Rhythm Pain Sedation Rate (ipm) (%) (mmHg) Status Level (bpm) 16:53:02 76 15 94 0 131/86(110) NSR 0 (11) 10(A) , No pain 16:57:16 76 14 96 15.6 136/93(126) NSR 0 (11) 10(A) , No pain 17:01:34 69 12 99 2.9 144/86(110) NSR 0 (11) 10(A) , No pain 17:05:56 75 16 96 11.2 144/84(117) NSR 0 (11) 9(A) , No pain 17:10:25 70 12 93 42.6 140/119(129) NSR 0 (11) 9(A) , No pain 17:15:22 81 11 98 32.1 167/92(148) NSR 0 (11) 9(A) , No pain 17:19:40 78 17 98 27.6 145/84(114) NSR 0 (11) 9(A) , No pain 17:24:51 79 17 98 26.9 149/90(123) NSR 0 (11) 10(A) , No pain Medications Time Medication Route Dose Verified Delivered Reason Notes Effectiveness by by 16:59:54 Oxygen etCO2 2 l/min Daron Biggs used for Nasal Laith English RN procedure cannula 16:59:59 Lidocaine 2% added 20ml vial Daron Neri for local to Laith Ozuna MD anesthetic field 17:00:11 Heparin Flush added 2 bags Daron Neri for local Bag to Laith Ozuna MD anesthetic (1000units/500ml field NS) 17:00:40 0.9% NaCl I.V. 100 ml/hr Daron Biggs Per physician Laith English RN 17:00:45 Versed I.V. 2 mg Daron Ortizie for sedation Laith English RN 17:00:51 Fentanyl I.V. 100 mcg Daron Ortizie for sedation Laith English RN 17:04:28 Dobutamine I.V. 5 Daron Ortizie Per physician (500mg/250ml drip mcg/kg/min Laith English RN D5W) 17:08:36 Versed I.V. 1 mg Daron Ortizie for sedation Laith English RN 17:08:40 Fentanyl I.V. 50 mcg Daron Ortizie for sedation Laith English RN 17:11:48 Heparin Bolus I.V. 4000 units Daron Biggs for verified Laith English RN anticoagulation with dr ozuna 17:17:09 Versed I.V. 1 mg Daron Buffie for sedation Laith English RN 17:17:13 Fentanyl I.V. 50 mcg Daron Ortizie for sedation Laith English RN Procedure Log Time Note 16:34:17 Dhruv Miguel RT(R) sent for patient. Start room use. 16:34:19 Time tracking: Regular hours (M-F 7:00 - 5:00) 16:34:23 Plan of Care:Hemodynamics will remain stable., Cardiac rhythm will remain stable., Comfort level will be maintained., Respiratory function will remain adequate., Patient/ family verbilizes understanding of procedure., Procedure tolerated without complication., Recovers from procedure without complications.. 16:40:12 Patient received from ED to CCL 1 Alert and oriented. Tansferred to table in Supine position. 16:40:15 Warm blankets applied, and samantha hugger turned on for patient comfort. 16:40:16 Correct patient and procedure confirmed by team. 16:40:17 Signed procedure consent form obtained from patient. 16:40:18 ECG and BP/O2 sat monitors applied to patient. 16:50:36 Vital chart was started 16:50:38 Baseline sample Acquired. 16:51:16 Rhythm: paced 16:51:18 Full Disclosure recording started 16:51:38 H&P Date Dictated: 08/10/2018 Within 30 days and on chart.. 16:51:38 Pre-procedure instructions explained to patient. 16:51:39 Pre-op teaching completed and patient verbalized understanding. 16:51:42 Family unavailable. 16:51:43 Patient NPO since Midnight. 16:51:44 Is the patient allergic to Iodine/contrast media? No. 16:51:54 Is patient on blood thinner?Yes 16:51:57 ACC The patient was administered the following blood thiners within the last 24 hours: ACCPlavix 16:52:08 Previous problem with sedation/anesthesia? No ? 16:52:09 Snore? No 16:52:16 Sleep apnea? No 16:52:17 Deviated septum? No 16:52:17 Opens mouth fully? Yes 16:52:18 Sticks out tongue? Yes 16:52:23 Airway obstruction? No ? 16:52:25 Dentures? No ? 16:52:28 Pre procedure: right dorsailis pedis pulse 1+ Palpable, but thready & weak; easily obliterated 16:52:39 Patient pain scale 0/10 ?. 16:52:43 IV patent on arrival in left forearm with 0.9% NaCl at [facility]. 16:52:47 Lab results completed and on chart. 16:52:50 Right groin area was prepped with chlora-prep and draped in sterile fashion 16:52:51 Alarms reviewed by RRefugio N. 16::52 Sharps counted by scrub and verified by R.N. 16:54:13 Physician paged 16:54:26 Patient Weight : 211.64 lbs 16:56:19 Lab Result : BUN 20 mg/dl 16:56:19 Lab Result : Creatinine 1 mg/dl 16:56:19 Lab Result : eGFR NONAFRICAN 76.74300 ml/min 16:56:19 Lab Result : Hemoglobin 17.1 g/dl 16:58:28 --------ALL STOP TIME OUT------ 16:58:28 Final Timeout: patient, procedure, and site verified with staff and physician. All members of the team are in agreement. 16:58:31 Right groin site verified by team. 16:58:35 Fire Safety Assessment: A--An alcohol-based skin anteseptic being used preoperatively., C--Open oxygen or nitrous oxide is being used., D--An ESU, laser, or fiber-optic light is being used. 16:58:38 Physical assessment completed. ASA score P 2 - A patient with mild systemic disease as per Daron Ozuna MD. 16:58:42 2) 60-89 Mildly reduced kidney function, and other findings (as for stage 1) point to kidney disease. 16:59:18 Maximum allowable contrast does (3.7 X eGFR X 0.75)214 ml. 16:59:23 Sedation plan: IV Moderate Sedation Medication:Versed, Fentanyl 16:59:54 Oxygen 2 l/min etCO2 Nasal cannula was administered by Dian English RN; used for procedure; 16:59:59 Lidocaine 2% 20ml vial added to field was administered by Daron Ozuna MD; for local anesthetic; 17:00:11 Heparin Flush Bag (1000units/500ml NS) 2 bags added to field was administered by Daron Ozuna MD; for local anesthetic; 17:00:18 Use device set Femoral Dx 17:00:20 Tegaderm 4 x 4 (1626W) opened to sterile field. 17:00:25 ACIST Syringe (83821) opened to sterile field. 17:00:26 Bag Decanter (2002S) opened to sterile field. 17:00:26 Medline Cath Pack ([id number]) opened to sterile field. 17:00:28 ACIST Hand Control (12487) opened to sterile field. 17:00:28 ACIST Manifold (49998) opened to sterile field. 17:00:31 DIAGNOSTIC Multipack 5Fr catheter set (NV9098) opened to sterile field. 17:00:34 EMERALD Guide Wire (502-446) opened to sterile field. 17:00:35 SHEATH 5FR [place] (IYO493) opened to sterile field. 17:00:40 0.9% NaCl 100 ml/hr I.V. was administered by Dian English RN; Per physician; 17:00:45 Versed 2 mg I.V. was administered by Dian English RN; for sedation; 17:00:51 Fentanyl 100 mcg I.V. was administered by Dian English RN; for sedation; 17:00:51 IV Extension Set opened to sterile field. 17:01:00 Procedure started. 17:01:02 Local anesthetic to right femoral artery with Lidocaine 2% by Daron Ozuna MD.INITIAL ACCESS ONLY 17:02:16 A 5 Fr sheath was inserted into the Right Femoral artery 17:02:31 A MULTIPACK Pigtail 5 Fr catheter was advanced over the wire and used for Procedure. 17:03:44 LV angiography performed. 17:03:45 LV gram done using MESSINA 17:03:50 EF : 30 % 17:03:55 Injector settings: Ml/sec: 7, Volume: 15, 17:03:57 Catheter removed. 17:04:02 A MULTIPACK JL 4.0 5Fr catheter was advanced over the wire and used for Procedure. 17:04:19 LCA angiography performed. 17:04:28 Dobutamine (500mg/250ml D5W) 5 mcg/kg/min I.V. drip was administered by Dian English RN; Per physician; 17:04:48 Use device set LAITH PCI 17:06:11 INFLATOR Merit BasixCompak (HS4956) opened to sterile field. 17:06:14 SHEATH 6FR [place] (AZM280) opened to sterile field. 17:06:37 Catheter removed. 17:06:39 [place] Verrata Plus pressure wire (93519N) opened to sterile field. 17:06:50 A MULTIPACK 3DRC 5Fr catheter was advanced over the wire and used for Procedure. 17:07:51 NAVAS to LAD angiography performed. 17:08:27 RCA angiography performed. 17:08:28 Catheter removed. 17:08:36 Versed 1 mg I.V. was administered by Dian English RN; for sedation; 17:08:40 Fentanyl 50 mcg I.V. was administered by Dian English RN; for sedation; 17:08:45 Sheath upsized to a 6 Fr Short. 17:08:49 A DIAGNOSTIC AR MOD 5Fr Catheter ([id number]) was advanced over the wire and used for Procedure. 17:09:46 SVG to Circ angiography performed. 17:10:21 SVG to RCA angiography performed. 17:10:26 Catheter removed. 17:11:48 Heparin Bolus 4000 units I.V. was administered by Dian English RN; for anticoagulation; verified with dr ozuna 17:12:44 GUIDE 6FR XB 3.5 catheter ([id number]) opened to sterile field. 17:13:08 6 Fr XBLAD 3.5 guide catheter was inserted over the wire 17:13:52 FFR/IFR wire advanced. 17:15:08 Wire advanced across lesion. 17:15:30 Diag1 lesion measured at 0.88 with IFR 17:15:45 Pre PCI Site: [place] Diag1 has 80% stenosis. 17:17:09 Versed 1 mg I.V. was administered by Dian English RN; for sedation; 17:17:13 Fentanyl 50 mcg I.V. was administered by Dian English RN; for sedation; 17:17:54 Place stent Inflation Number: 1 A KIMBERLY RX 2.25 x 18 stent ([id number]) was prepped and advanced across the 1st Diag 80. The stent was deployed at 11 BEVERLEY for 0:10 (min:sec) 0. 17:18:26 Inflation number: 2 The stent balloon was then re-inflated across the 1st Diag 0 to 11 BEVERLEY for 0:10 (min:sec) . 17:18:43 Stent catheter was removed intact over wire. 17:18:45 Wire removed. 17:18:45 Guide catheter removed. 17:18:50 CHOICE PT Extra Support 182cm wire ([id number]) opened to sterile field. 17:18:55 GUIDE 6FR AR 1.0 SH catheter ([id number]) opened to sterile field. 17:19:35 6 Fr AR 1 SH guide catheter was inserted over the wire 17:19:46 Pre PCI Site: Vein Graft dCirc has 95% stenosis. 17:19:51 CPTXS wire advanced. 17:20:28 Wire advanced across lesion. 17:22:43 Place stent Inflation Number: 1 A KIMBERLY RX 2.5 x 22 stent ([id number]) was prepped and advanced across the Aorta Left -> Dist CX 95. The stent was deployed at 5 BEVERLEY for 0:10 (min:sec) 0. 17:22:57 Stent catheter was removed intact over wire. 17:22:58 Wire removed. 17:23:03 Guide catheter removed. 17:23:16 EXOSEAL 6Fr (EX600) opened to sterile field. 17:24:18 Sheath removed intact; hemostasis achieved with Exoseal to the Right Femoral artery. 17:24:21 Procedure ended.(Physican Out) 17:26:29 Fluoroscopy time 06.20 minutes. 17:26:37 Fluoroscopy dose: 2612 mGy 17:26:37 Flurop Dose total: 2612 17:26:53 Contrast amount:Isovue 370 176ml. 17:27:01 Sharps counted by scrub and verified by R.N. 17:27:03 Insertion/operative site no bleeding no hematoma. 17:27:06 Post-op/insertion site Right Femoral artery dressed using a 4 x 4 and Tegaderm. 17:27:08 Post Procedure Pulses reassessed and unchanged 17:27:11 Post-procedure physical assessment completed. ASA score P 2 - A patient with mild systemic disease as per Daron Ozuna MD. 17:27:15 Post procedure rhythm: unchanged. 17:27:19 Estimated blood loss: 10 ml 17:27:21 Post procedure instruction explained to patient.Patient verbalizes understanding. 17:27:22 Patient needs reinforcement of post procedure teaching. 17:27:41 Procedure type changed to Cath procedure, Diagnostic procedure, LHC, LHC w/Coronaries w/Grafts, FFR/IVUS, FFR Initial, PCI procedure, Coronary Stent, Coronary Stent Initial, AMI/SVG/EMBLEM FUSER TENDER PTCA or Stent, SVG-BMS/JIMMIE Initial 17:28:40 Procedure and supply charges have been captured, reviewed, submitted and are correct. 17:28:44 Procedure Complication : No complications 17:28:46 Vital chart was stopped 17:28:46 See physician's report for complete and final results. 17:28:48 Report given to PCU. 17:28:51 Patient transfered to PCU with Bed. 17:28:53 Procedure ended. 17:28:53 Full Disclosure recording stopped 17:28:57 End room use (Document Last) Intervention Summary Intervention Notes Time ActionType Lesion and Equipment Used Action# Pressure Duration Attributes 17:17:54 Place stent 1st Diag KIMBERLY RX 2.25 x 1 11 00:10 18 stent ([id number]) 17:18:26 Reinflate 1st Diag KIMBERLY RX 2.25 x 2 11 00:10 stent 18 stent balloon ([id number]) 17:22:43 Place stent Aorta Left KIMBERLY RX 2.5 x 1 5 00:10 -> Dist CX 22 stent ([id number]) Device Usage Item Name Manufacture Quantity Catalog Number Hospital Part Current Minimal Lot# / Charge Number Stock Stock Serial# Code Tegaderm 4 x 4 3M 1 1626W 928879 627587 238064 5 (1626W) ACIST Syringe Acist 1 82466 323125 629393 638343 20 (67884) Medical Systems Inc Bag Decanter Microtek 1 2001S 817879 89009 994443 5 (2001S) Medical Inc. Medline Cath Medline 1 [id number] 338885 30050 055189 5 Pack ([id number]) ACIST Hand Acist 1 19086 235869 749150 639810 5 Control Medical (88207) Systems Inc ACIST Manifold Acist 1 71128 611295 967008 371967 5 (41311) Medical Systems Inc DIAGNOSTIC Cardinal 1 YF2270 196538 83680 799107 30 Multipack 5Fr Health catheter set (MK2534) EMERALD Guide Cardinal 1 502-455 985989 413711 477093 5 Wire (502-455) Health SHEATH 5FR Terumo 1 YSX640 360171 881883 232666 5 [place] (CEL207) IV Extension Hospira 1 80769-55 824126 15294 941236 5 Set MULTIPACK Cardinal 1 392564 5 Pigtail 5 Fr Health catheter MULTIPACK JL Cardinal 1 383548 5 4.0 5Fr Health catheter INFLATOR Merit Merit 1 BW9081 464864 449475 097111 15 [facility] (JJ7311) SHEATH 6FR Terumo 1 FOY056 209261 733491 246016 40 [place] (PRW189) [place] 1 47369Q 492929 398308201 597114 5 Verrata Plus pressure wire (33815C) MULTIPACK 3DRC Cardinal 1 302217 5 5Fr catheter Health DIAGNOSTIC AR Cardinal 1 [id number] 461929 306413 725124 15 MOD 5Fr Health Catheter (887510D) GUIDE 6FR XB Cardinal 1 [id number] 897573 003742 047078 2 3.5 catheter Health (33403021) KIMBERLY RX 2.25 x Medtronic 1 [id number] 748209 9757535 250372 5 [id number] 18 stent ([id number]) CHOICE PT [place] 1 [id number] 864360 415643 928205 5 Extra Support Scientific 182cm wire ([id number]) GUIDE 6FR AR Medtronic 1 [id number] 982135 32348 822212 1 1.0 SH catheter ([id number]) KIMBERLY RX 2.5 x Medtronic 1 [id number] 313096 5075890 041100 5 [id number] 22 stent ([id number]) EXOSEAL 6Fr Cardinal 1 EX600 000913 312386 717751 10 (EX600) Health Signature Audit Sidell Stage Time Signature Unsigned Intra-Procedure 08/10/2018 Dhruv Miguel 5:29:15 PM RT(R) Signatures Monitor : Precious Stiles RT Signature : Date : Time : [facility] [address] [place] [address]
--- NOTE | ~2018-08-10 | EC ---
PATIENT:PAUL ANDRADE III DATE OF SERVICE: 08/10/18 SEX: M MEDICAL RECORD: [id number] DATE OF : 42 LOCATION:D.M2 D.212 AGE OF PATIENT: 78 ADMISSION DATE: 08/10/18 REFERRING PHYSICIAN: INTERPRETING PHYSICIAN: HYACINTH OZUNA MD ECHOCARDIOGRAM REPORT ECHO CHARGES 4 ECHO COMPLETE Date: 08/10/18 CLINICAL DIAGNOSIS: ECHOCARDIOGRAPHIC MEASUREMENTS (adult normal given) AC root (d.<3.7cm) 3.2 cm LV Septum d (<1.2 cm> 1.5 cm Valve Excursion 1.3 cm LV Septum (systole) 1.9 cm Left Atria (s.<4.0cm> 4.5 cm LVPW d(<1.2cm) 1.4 cm RV (d.<2.3cm) 2.4 cm LVPW (sytole) 1.8 cm LV diastole(<5.6CM) 5.7 cm MV E-F(>70mm/sec) cm LV systole 4.3 cm LVOT Diameter 1.8 cm MV exc.(>10mm) cm Est.ejection fraction (50-75%) % DOPPLER: LVIT cm/sec A cm/sec E 86.0 cm/sec LA cm/sec RVSP mmHg LVOT 52.0 cm/sec AOP1/2T m/s Asc. Ao 108 cm/sec RVOT 62.0 cm/sec RA cm/sec PA 78.0 cm/sec AV Gradient Peak 4.6 mmHg AV Mean 2.5 mmHg AV Area 1.3 cm MV Gradient Peak 4.7 mmHg MV Mean 2.1 mmHg MV Area cm COMMENTS: Rolled Glass Crosscutter: 1 REGINA MUÑOZOE Sales Producer: 1 Dr. Ozuna TAPE# PACS Pericardial Effusion N DATE OF SERVICE: 08/10/2018 FINDINGS: 1. Left ventricular chamber size is mildly dilated. Left ventricular systolic function is moderately reduced. Overall ejection fraction is 30%. 2. Left atrium is enlarged at 4.5 cm. Right atrium and right ventricular chamber sizes are as well mildly dilated. 3. Valvular structures have normal structure and motion. 4. Doppler interrogation reveals mild mitral regurgitation. No other valvular insufficiency or stenosis. ECHOCARDIOGRAM REPORT [id number] PAUL ANDRADE III 5. No evidence of pericardial effusion or left ventricular thrombus. TRANSINT:[id number] Voice Confirmation ID: [id number] DOCUMENT ID: [id number] HYACINTH OZUNA MD CC: [id number] DICTATION DATE: 08/10/181739 QUALITY ASSURANCE LAB TECHNICIAN: 08/10/181953 ADM IN [place] [id number] [place] [address]
[2018-08-10] MEDS ORDERED: UROXATRAL10 MG PO (13:31)
[2018-08-10] MEDS ORDERED: DOXYCYCLINE HY100 M2 PO (13:32)
[2018-08-10 13:56] VITALS: BP 132/76
[2018-08-10 14:01] VITALS: BP 121/79
[2018-08-10 14:23] LABS: BASOPHILS 0.6 % (0-2); EOSINOPHILS 2.1 % (0-7); HEMATOCRIT 49.3 % (42.0-54.0); HEMOGLOBIN 17.1 g/dL (13.5-17.5); IMMATURE GRANULOCYTES 0.2 % (0-5); LYMPHOCYTES 26.2 % (15-50); MCH 33.5 pg (26.0-34.0); MCHC 34.7 g/dL (31.0-37.0); MCV 96.5 fL (80.0-100.0); MEAN PLATELET VOLUME 11.4 fL (7.4-10.4); MONOCYTES 10.8 % (2-11); NEUTROPHILS 60.1 % (40-80); PLATELET COUNT 116 10x3/uL (130-400); RBC 5.11 10x6/uL (4.20-6.10); WBC 4.7 10x3/uL (4.8-10.8)
[2018-08-10 14:39] LABS: APTT 31.1 SECONDS (22.8-39.4); INR 1.17 (0.85-1.17); PROTIME 14.4 SECONDS (11.6-15.0)
[2018-08-10 14:49] LABS: ALBUMIN 3.7 g/dL (3.4-5.0); ALKALINE PHOSPHATASE 52 U/L (46-116); ALT (SGPT) 45 U/L (10-68); CALC OSMOLALITY 290 mosm/kg (275-300); CALCIUM 9.2 mg/dL (8.5-10.1); CARBON DIOXIDE 34.6 mmol/L (21.0-32.0); CHLORIDE - SERUM 103 mmol/L (98-107); CKMB 3.1 U/L (0.0-3.6); CREATINE KINASE 196 UL (21-232); GLUCOSE 147 mg/dL (74-106); MAGNESIUM - SERUM 1.4 mg/dL (1.8-2.4); PRO BNP 1968 pg/mL (0-450); PROTEIN - SERUM 7.4 g/dL (6.4-8.2); SODIUM 143 mmol/L (136-145); TROPONIN-I 0.022 ng/mL (0.000-0.060); UREA NITROGEN 20 mg/dL (7-18); eGFR NON AFRICAN AMERICAN 77 mL/min (90-120)
[2018-08-10 14:52] LABS: POTASSIUM - SERUM 2.9 mmol/L (3.5-5.1)
--- NOTE | 2018-08-10 14:52 | NUR ---
RECIEVED TC FROM LAB. k 2.0 NOTIFIED
[2018-08-10 15:06] VITALS: BP 134/83
[2018-08-10 16:07] VITALS: BP 136/92
[2018-08-10 16:36] VITALS: BP 132/86
--- NOTE | 2018-08-10 16:38 | NUR ---
[facility] [employer] HERE. PT TRANSPORTED, CONDITION STABLE
[2018-08-10 20:00] VITALS: BP 148/76
--- NOTE | 2018-08-10 20:09 | NUR ---
SPOKE WITH PAUL IN PHARMACY, INFORMED HER THAT PT NEEDED A BUMEX DRIP MADE AND BROUGHT UP.
[2018-08-11] VITALS: BP 95/65
[2018-08-11 02:49] VITALS: Ht 177.8 cm; Wt 96.4 kg
[2018-08-11 03:52] LABS: BASOPHILS 0.5 % (0-2); EOSINOPHILS 1.6 % (0-7); HEMATOCRIT 50.5 % (42.0-54.0); HEMOGLOBIN 17.7 g/dL (13.5-17.5); IMMATURE GRANULOCYTES 0.3 % (0-5); LYMPHOCYTES 24.2 % (15-50); MCH 33.7 pg (26.0-34.0); MEAN PLATELET VOLUME 11.7 fL (7.4-10.4); MONOCYTES 12.2 % (2-11); NEUTROPHILS 61.2 % (40-80); PLATELET COUNT 121 10x3/uL (130-400); RBC 5.26 10x6/uL (4.20-6.10)
[2018-08-11 03:55] LABS: WBC 6.2 10x3/uL (4.8-10.8)
[2018-08-11 04:00] VITALS: BP 105/56
[2018-08-11 04:12] LABS: ALKALINE PHOSPHATASE 56 U/L (46-116); ALT (SGPT) 48 U/L (10-68); BILIRUBIN - TOTAL 1.78 mg/dL (0.2-1.3); CALC OSMOLALITY 289 mosm/kg (275-300); CALCIUM 8.8 mg/dL (8.5-10.1); CARBON DIOXIDE 30.7 mmol/L (21.0-32.0); CHLORIDE - SERUM 103 mmol/L (98-107); GLUCOSE 111 mg/dL (74-106); PROTEIN - SERUM 7.4 g/dL (6.4-8.2); SODIUM 144 mmol/L (136-145); UREA NITROGEN 19 mg/dL (7-18); eGFR NON AFRICAN AMERICAN 77 mL/min (90-120)
[2018-08-11 04:13] LABS: POTASSIUM - SERUM 3.4 mmol/L (3.5-5.1)
[2018-08-11 04:23] LABS: CKMB 2.5 U/L (0.0-3.6); CREATINE KINASE 180 UL (21-232); TROPONIN-I 0.078 ng/mL (0.000-0.060)
--- NOTE | 2018-08-11 07:14 | NUR ---
REPORT RECEIVED. WILL CONTINUE WITH POC. PT CURRENTLY LYING ON RIGHT SIDE RESTING. CALL LIGHT W/I REACH. BUMEX INFUSING @10ML/HR AND DOBUTAMINE INFUSING @14.2ML/HR VIA L.HAND PIV. NO S/S OF DISTRESS NOTED. PT DENIES ANY NEEDS AT THIS TIME. WILL CTM.
--- NOTE | 2018-08-11 08:51 | HP ---
PATIENT: PAUL ANDRADE III MEDICAL RECORD: [id number] ACCOUNT: [id number] LOCATION:[address] : 42 ADMISSION DATE: 08/10/18 PCP: NALLELY CASTRO HISTORY AND PHYSICAL EXAMINATION DIAGNOSES: 1. Unstable angina class IV. 2. Coronary artery disease. 3. Status post multivessel percutaneous transluminal coronary angioplasty stent. 4. Cardiomyopathy. 5. Shortness of breath, dyspnea on exertion. 6. Hypertension. 7. Atrial fibrillation. 8. Hyperlipidemia. 9. Implantable cardioverter-defibrillator. HISTORY OF PRESENT ILLNESS: Mr. Andrade is well known to us with a past history of coronary artery disease, status post multivessel PTCA stent, status post bypass surgery. He has had 2 days of increasing shortness of breath, dyspnea on exertion where any minimal exertion even from the car to the office causes extreme shortness of breath as well. He is having chest pain, chest discomfort compatible with angina class IV and rest pain. CURRENT MEDICATIONS: Coreg, Betapace, Diovan, aspirin, Plavix, Bumex, potassium. His systolic blood pressure was in the 100 range, heart rate is in the 60s. His ICD was interrogated. He has not had any dysrhythmias that would explain his symptomatology. His last cardiac intervention was approximately a year ago. PHYSICAL EXAMINATION: GENERAL APPEARANCE: Well-nourished, well-developed, appears stated age. Level of distress, comfortable. PSYCHIATRIC: Mental status, alert, normal affect. Orientation, oriented to time, place and person. EYES: Lids and conjunctiva, noninjected. No discharge, no pallor. ENT: Lips, teeth, gums, normal dentition. Oropharynx, no cyanosis, no pallor. NECK: Carotid arteries, bilateral normal upstroke, no bruits, no thrills. JUGULAR VEINS: No jugular venous pressure or distention. CERVICAL LYMPH NODES: Nontender, nonenlarged. THYROID: Not enlarged. Nontender. No nodules. LUNGS: Respiratory effort, unlabored. CHEST: Normal curvature. No thoracic deformity. No chest wall tenderness. Percussion, resonant. Auscultation, clear. No wheezes, no rales, no rhonchi. CARDIOVASCULAR: Precordial exam, nondisplaced. No heaves or pericardial thrills. Rate and rhythm, regular. Heart sounds, normal S1, normal S2. No S3, no gallop, no rub. Systolic murmur, not heard. Diastolic murmur, not heard. EXTREMITIES: No cyanosis, no edema. Peripheral pulses, full and equal in all extremities, except as noted. No bruits appreciated. ABDOMEN: Soft, nondistended. Normal aorta. No bruit. Nontender. No masses. Liver, nontender, no hepatomegaly. Spleen, nontender, no splenomegaly. MUSCULOSKELETAL: No joint tenderness. No joint swelling. No erythema. NEUROLOGICAL: Normal gait, normal strength, normal tone. SKIN: Warm and dry. HISTORY AND PHYSICAL [id number] PAUL ANDRADE III OVERALL IMPRESSION: Class IV unstable anginal symptomatology. We will proceed with repeat coronary angiography. Further care depends upon findings of the angiography. TRANSINT:[id number] Voice Confirmation ID: [id number] DOCUMENT ID: [id number] HYACINTH SALAZAR MD at 0851 CC: [id number] DICTATION DATE: 08/10/181652 PORCELAIN BUILDUP ASSISTANT: 08/10/18 1704 ADM IN [facility] [address] [place] [address]
--- NOTE | 2018-08-11 08:51 | OP ---
PATIENT NAME: PAUL ANDRADE III MEDICAL RECORD: [id number] :42 LOCATION:D.M2 D.2122 ADMISSION DATE:08/10/18 SURGEON: HYACINTH SALAZAR MD DATE OF OPERATION: 08/10/2018 PROCEDURES: 1. PTCA and stent, vein graft to left circumflex. 2. PTCA and stent, vein graft to LAD diagonal. 3. IFR. 4. Left heart catheterization. 5. Selective coronary angiography. 6. Left ventriculogram. 7. NAVAS angiography. 8. Vein graft angiography. INDICATION: Class IV unstable angina, class IV heart failure, coronary artery disease, cardiomyopathy, hypertension, and hyperlipidemia. PROCEDURE IN DETAIL: After informed consent was obtained with detailed description of risks and benefits as well as alternative therapies, the patient elected to proceed with angiogram and angioplasty. The right femoral area was prepped and draped in normal sterile fashion. The right femoral artery was cannulated via modified Seldinger technique with placement of 6-Zambian sheath. All catheters were exchanged through this sheath. FINDINGS: Left ventriculogram performed in standard 30-degree MESSINA view reveals global hypokinesis. Ejection fraction 30%. SELECTIVE CORONARY ANGIOGRAPHY: 1. Left main is with no significant angiographic disease. 2. Left anterior descending is totally occluded in the mid vessel. Prior to the total occlusion, there is a relatively long LAD diagonal that has 80% stenosis and IFR is abnormal at 0.88. 3. Left circumflex has previously placed stents. These are widely patent; however, the first obtuse marginal has 99% stenosis at the ostium. 4. Vein graft to the obtuse marginal is patent; however, there is 95% stenosis proximally of the vein graft. 5. Right coronary has moderate irregularities. 6. Vein graft to the right coronary is patent. Distal right coronary is patent. PTCA AND STENT OF THE LAD DIAGONAL: The stent used was 2.25 x 18 mm Kingsley. Result was 0% residual stenosis throughout. PTCA AND STENT OF THE VEIN GRAFT TO THE LEFT CIRCUMFLEX: The stent used was 2.5 x 22 mm Mikie. Result was 0% residual stenosis. OVERALL IMPRESSION: Successful PTCA and stent of the LAD diagonal as well as vein graft to circumflex, both going from 80% to 95% initial stenosis to 0% residual. TRANSINT:[id number] Voice Confirmation ID: [id number] DOCUMENT ID: [id number] OPERATIVE REPORT [id number] PAUL ANDRADE III, JEFFREY MD at 0851 CC: [id number] DICTATION DATE: 08/10/181729 STRAIGHT CUTTER: 08/10/181913 ADM IN [facility] [address] [id number]
[2018-08-11 09:20] VITALS: BP 122/77
--- NOTE | 2018-08-11 09:39 | NUR ---
PT DISCHARGED HOME VIA WHEELCHAIR WITH FAMILY. PIV REMOVED WITH CATHETER TIP FULLY INTACT. TELEMETRY REMOVED AND RETURNED. PT SIGNED DISCHARGE INSTRUCTION AND REMOVED ALL VALUABLES FROM THE ROOM.
--- NOTE | 2018-08-12 09:17 | MORECARE ---
CASE MANAGEMENT DISCHARGE SUMMARY PATIENT: PAUL ANDRADE III UNIT: [id number] ADM DATE: 08/10/18 AGE: 78 : 41 SEX: M ROOM/BED: D.2121 AUTHOR: ELIZABETH SOTO PHYSICIAN: REFERRING PHYSICIAN: HYACINTH SALAZAR MD DATE OF SERVICE: 08/12/18 Discharge Plan Patient Name: [facility]UL [facility]ADE [facility] [facility] 1940 Planned Disposition: Home Anticipated Discharge Date: 08/11/18 Discharge Date: 08/11/2018 Expected LOS: 1 Initial Reviewer: [email or web address] Initial Review Date: 08/12/2018 Generated: 08/12/18 10:16 am Patient Name: PAUL ANDRADE Page 42821 at 0917 All edits/amendments must be made on the electronic document DICTATION DATE: 08/12/18915 INSTRUCTIONAL TECHNOLOGY TEACHER: VIRGIL 08/12/18915 RPT#: [id number] DC DATE:08/11/18 STATUS: DIS IN [facility] [address] [place] [address] END OF REPORT
== END 2018-08-11 09:40 | disposition home or self-care (01) ==
LOC: D.CATH 13:27 → D.ER 13:27 → EDSTATUS 14:10 → D.M2 18:25 → OBSVTIME 18:26 → D.ICU 22:43 → D.M2 22:48
PROVIDERS: Family Medicine; ADMIT Internal Medicine Interventional Cardiology; ATTEND Internal Medicine Interventional Cardiology
DX: I25.110 Atherosclerotic heart disease of native coronary artery with unstable angina pectoris (principal); R06.02 Shortness of breath; I10 Essential (primary) hypertension; E78.5 Hyperlipidemia, unspecified; I42.9 Cardiomyopathy, unspecified; I50.22 Chronic systolic (congestive) heart failure; I47.2 Ventricular tachycardia; I48.0 Paroxysmal atrial fibrillation; I42.0 Dilated cardiomyopathy

== ENCOUNTER 2018-11-15 11:04 | Outpatient (CLI) | payer MEDICARE, BC ==
[~2018-11-15] VITALS: Ht 177.8 cm; Wt 93.2 kg
--- NOTE | ~2018-11-15 | HEMODYNAMI ---
PATIENT:PAUL ANDRADE III MEDICAL RECORD: [id number] : 42 LOCATION:D.CAT ADMISSION DATE: 11/15/18 Generatedon:11/15/201815:57 Patient name: PAUL ANDRADE Patient #: [id number] SSN: : 1940 Date of study: 11/15/2018 Page: Of Hemodynamic Procedure Report Patient Data Patient Demographics Procedure consent was obtained First Name: PAUL Gender: Male Last Name: RAYMOND Suffix: III Middle Initial: A : 1940 Patient #: [id number] Age: 78 year(s) Race: Additional ID: [id number] Contact details [address]: [address] [place] [address] [place] State: [place] City: [place] Zip code: [address] Past Medical History History of disease Date Diagnosis Comments CAD CHF->[place] Hypertension LV dysfunction Allergies: No known allergies Admission Admission Data Admission Date: 11/15/2018 Admission Time: 11:04 Admit Source: Other Procedure Procedure Types Cath Procedure Diagnostic Procedure PPM/ICD ICD GEN EXCHANGE (3 LEAD) Sedation Charges Moderate Sedation up to 15 minutes Procedure Description Procedure Date Procedure Date: 11/15/2018 Procedure Start Time: 13:37 Procedure End Time: 14:07 Procedure Staff Name Function Dhruv Miguel RT Scrub Dian English RN Nurse Marc Montague MD Assisting physician Steve Hunter MD Performing Physician Lucia Childers RT Monitor Elvie Roy RT Scrub Procedure Data Cath Procedure Estimated blood loss: 10 ml Procedure Complications No complications Procedure Medications Medication Administration Route Dosage Oxygen etCO2 Nasal cannula 2 l/min Ancef (1Gm/50ml NS) I.V.P.B 1 g Ancef Irrigation Topical 1 g (1gm/500ml NS) Lidocaine 1% with added to field 20 ml Epi Versed I.V. 2 mg Fentanyl I.V. 75 mcg Versed I.V. 2 mg Fentanyl I.V. 50 mcg Versed I.V. 2 mg Fentanyl I.V. 50 mcg Hemodynamics Rest Pre Cath Intra NCS Post Cath Vital Signs Time Heart Resp SPO2 etCO2 NIBP (mmHg) Rhythm Pain Sedation Rate (ipm) (%) (mmHg) Status Level (bpm) 13:20:38 73 13 95 15.8 115/68(90) Paced (Missing) 10(A) 13:25:15 75 12 98 28.6 126/73(102) Paced (Missing) 10(A) 13:29:29 70 14 98 18.8 116/67(89) Paced (Missing) 10(A) 13:33:39 70 15 97 25.5 113/65(96) Paced (Missing) 10(A) 13:37:47 75 12 95 30.8 123/67(89) Paced (Missing) 9(A) 13:41:55 84 12 95 27 110/75(92) Paced (Missing) 9(A) 13:46:00 70 13 94 34.5 114/68(90) Paced (Missing) 9(A) 13:50:08 69 12 98 24.8 129/72(103) Paced (Missing) 9(A) 13:54:16 73 14 96 27 106/74(90) Paced (Missing) 10(A) 13:58:20 67 14 98 24 120/71(98) Paced (Missing) 10(A) 14:02:29 72 15 96 24.8 116/74(99) Paced (Missing) 10(A) 14:06:39 69 9 97 10.5 130/65(105) Paced (Missing) 10(A) Medications Time Medication Route Dose Verified Delivered Reason Notes Effectiv eness by by 13:20:47 Oxygen etCO2 2 Steve Biggs used for Nasal l/min St Reynaldo English RN procedure cannula 13:20:59 Ancef I.V.P.B 1 g Steve Biggs used for (1Gm/50ml St Reynaldo English RN procedure NS) 13:21:08 Ancef Topical 1 g Steve Tran used for Irrigation St Reynaldo Montague MD procedure (1gm/500ml NS) 13:21:21 Lidocaine added 20 ml Steve Tran for local 1% with Epi to St Reynaldo Montague MD anesthetic field 13:34:33 Versed I.V. 2 mg Steve Biggs for St Reynaldo English RN sedation 13:34:38 Fentanyl I.V. 75 Steve Biggs for [facility] Reynaldo English RN sedation 13:37:41 Versed I.V. 2 mg Steve Biggs for St Reynaldo English RN sedation 13:37:45 Fentanyl I.V. 50 Steve Biggs for cory Pendleton RN sedation 13:44:56 Versed I.V. 2 mg [address] for St Reynaldo English RN sedation 13:45:00 Fentanyl I.V. 50 Steve Biggs for cory Pendleton RN sedation Procedure Log Time Note 13:01:57 Admit Source: Other 13:02:02 Procedure Status Elective Heart Cath (OP). 13:02:05 Dian English RN sent for patient. Start room use. 13:02:07 Time tracking: Regular hours (M-F 7:00 - 5:00) 13:02:12 Plan of Care:Hemodynamics will remain stable., Cardiac rhythm will remain stable., Comfort level will be maintained., Respiratory function will remain adequate., Patient/ family verbilizes understanding of procedure., Procedure tolerated without complication., Recovers from procedure without complications.. 13:02:18 Patient received from Pre/Post Procedure Room to CCL 3 Alert and oriented. Tansferred to table in Supine position. 13:02:23 Signed procedure consent form obtained from patient. 13:02:24 Warm blankets applied, and samantha hugger turned on for patient comfort. 13:02:25 Correct patient and procedure confirmed by team. 13:03:00 H&P Date Dictated: 10/24/2018 Within 30 days and on chart.. 13:03:02 Pre-procedure instructions explained to patient. 13:03:05 Family in waiting room. 13:03:07 Patient NPO since Midnight. 13:03:19 Patient allergic to No known allergies 13:03:26 Is the patient allergic to Iodine/contrast media? N/A. 13:03:52 Is patient on blood thinner?Yes 13:04:01 Patient diabetic? No. 13:04:07 Previous problem with sedation/anesthesia? No ? 13:18:34 Vital chart was started 13:20:47 Oxygen 2 l/min etCO2 Nasal cannula was administered by Dian English RN; used for procedure; Verbal order read back and verified. 13:20:59 Ancef (1Gm/50ml NS) 1 g I.V.P.B was administered by Dian English RN; used for procedure; Verbal order read back and verified. 13:21:08 Ancef Irrigation (1gm/500ml NS) 1 g Topical was administered by Marc Montague MD; used for procedure; Verbal order read back and verified. 13::21 Lidocaine 1% with Epi 20 ml added to field was administered by Marc Montague MD; for local anesthetic; Verbal order read back and verified. 13:26:15 Snore? Yes 13:26:16 Sleep apnea? No 13:26:35 IV patent on arrival in right forearm with 0.9% NaCl at [facility]. 13:26:44 Lab results completed and on chart. 13::56 Left chest area was prepped with chlora-prep and draped in sterile fashion 13::58 Sharps counted by scrub and verified by R.N. 13::58 Alarms reviewed by R. N. 13:28:27 Use device set PETRONA PPM 13:28:34 3-0 Vicryl Single Pack [id number] opened to sterile field. 13:28:34 2-0 Ticron Multipack ([id number]) opened to sterile field. 13:28:37 Cautery Tip Groundskeeping Maintenance Worker opened to sterile field. 13:28:37 5-0 Monocryl PS2 [id number] opened to sterile field. 13:28:40 Mepilex Dressing ([id number]) opened to sterile field. 13:28:40 Cautery Pushbutton Pencil opened to sterile field. 13:30:44 Pre sharps counted by scrub and verified by RN: Sutures: 7; Sponges: 5; Stick needles: 2; Skin needles: 0; Blade: 1; Cautery: 1 13:34:08 --------ALL STOP TIME OUT------ 13:34:08 Physician arrived 13:34:09 Final Timeout: patient, procedure, and site verified with staff and physician. All members of the team are in agreement. 13:34:24 Left chest site verified by team. 13:34:30 Fire Safety Assessment: A--An alcohol-based skin anteseptic being used preoperatively., C--Open oxygen or nitrous oxide is being used., D--An ESU, laser, or fiber-optic light is being used. 13:34:33 Versed 2 mg I.V. was administered by Dian English RN; for sedation; Verbal order read back and verified. 13:34:35 Physical assessment completed. ASA score P 2 - A patient with mild systemic disease as per Steve Hunter MD. 13:34:38 Fentanyl 75 mcg I.V. was administered by Dian English RN; for sedation; Verbal order read back and verified. 13:34:42 Sedation plan: IV Moderate Sedation Medication:Versed, Fentanyl 13:37:06 Full Disclosure recording started 13:37:06 Procedure started. 13:37:14 [employer] signs sales representative Stephen present for procedure. 13:37:19 Grounding pad site Left thigh. 13:37:21 Grounding pad site free from injury. 13:37:27 Lidocaine 1% w/epi was administered to left subclavicular area by Marc Montague MD . 13:37:29 Incision made to left subclavicular area. 13:37:31 Generator pocket made/opened. 13:37:41 Versed 2 mg I.V. was administered by Dian English RN; for sedation; Verbal order read back and verified. 13:37:45 Fentanyl 50 mcg I.V. was administered by Dian English RN; for sedation; Verbal order read back and verified. 13:42:57 AICD was removed.. 13:43:27 AICD was inserted subcutaneously to left chest. 13:44:18 [facility] CUSTOMER EXPERIENCE INTERN-D Sure Scan [id number] opened to sterile field. 13:44:56 Versed 2 mg I.V. was administered by Dian English RN; for sedation; Verbal order read back and verified. 13:45:00 Fentanyl 50 mcg I.V. was administered by Dian English RN; for sedation; Verbal order read back and verified. 13:45:26 Device pocket was irrigated with Ancef. 13:46:19 Subcutaneous closure was completed with 3-0 vicryl. 13:46:46 Skin closure was completed with 5-0 monocryl. 13:46:50 Generator was sutured in place with 2-0 silk. 14:03:19 Post sharps counted by scrub and verified by RN: Sutures: 7; Sponges: 5; Stick needles: 2; Skin needles: 0; Blade: 1; Cautery: 1 14:05:28 Procedure ended.(Physican Out) 14:05:38 Insertion/operative site no bleeding no hematoma. 14:05:51 Post-op/insertion site Left Chest area dressed using a Mepilex dressing. 14:06:07 Post procedure rhythm: paced 14:06:11 Estimated blood loss: 10 ml 14:06:14 Post procedure instruction explained to patient.Patient verbalizes understanding. 14:06:36 Procedure type changed to Cath procedure, Diagnostic procedure, PPM/ICD, ICD GEN EXCHANGE (3 LEAD), Sedation Charges, Moderate Sedation up to 15 minutes 14:06:45 Procedure Complication : No complications 14:06:50 Vital chart was stopped 14:06:55 See physician's report for complete and final results. 14:06:58 Report given to Pre/Post Procedure Room. 14:07:03 Patient transfered to Pre/Post Procedure Room with Stretcher. 14:07:06 Full Disclosure recording stopped 14:07:06 Procedure ended. 14:07:31 End room use (Document Last) 14:09:25 Parameters-- Generator: Mode: DDDR. Lower Rate: 70bpm. Upper Rate: 120bpm. 14:11:00 Parameters--Ventricular P/R Wave: 0mV. Current: 0mA; Threshold: 2.3V; Impedence: 532OHMS. 14:12:07 Parameters--Atrial P/R Wave: 0mV. Current: 0mA; Threshold: .8V; Impedence: 475OHMS. 14:12:16 Lt Chest incision was dressed with Mepilex dressing. Device Usage Item Name Manufacture Quantity Catalog Hospital Part Current Minimal Lot# / Number Charge Number Stock Stock Serial# Code 2-0 Ticron Ethicon 0 [id number] [id number] 5 Multipack ([id number]) 3-0 Vicryl Ethicon 1 [id number] 5 Single Pack [id number] 5-0 Monocryl Ethicon 1 [id number] [id number] [id number] 5 PS2 Y495G Cautery Tip Microtek 1 [id number] 282473 [id number] 5 [employer] Cautery Microtek 1 [id number] [id number] 5 [employer] Pencil Mepilex Cardinal 1 [id number] [id number] [id number] 5 [facility] ([id number]) [place] MRI Unknown 1 0 0 [id number] QUAd CUSTOMER EXPERIENCE INTERN-D exp Sure Scan 10/06/19 [id number] Signature Audit [place] Stage Time Signature Unsigned Intra-Procedure 11/15/2018 Lucia Childers 2:13:44 PM RT(R) Intra-Procedure 11/15/2018 Dian English RN 2:14:39 PM Intra-Procedure 11/15/2018 Steve Andersen 3:57:26 PM Reynaldo [facility] [address] [place] [address]
[~2018-11-15 11:04] MED LIST changes: +DOXYCYCLINE HY100 M2 PO
[2018-11-15] MEDS ORDERED: VIBRAMYCIN 100100 MG PO (11:36)
[2018-11-15 11:45] VITALS: BP 130/76; Ht 177.8 cm; Wt 93.2 kg
[2018-11-15 11:51] LABS: HEMATOCRIT 51.1 % (42.0-54.0); HEMOGLOBIN 17.9 g/dL (13.5-17.5); MCH 34.8 pg (26.0-34.0); MCV 99.4 fL (80.0-100.0); MEAN PLATELET VOLUME 11.8 fL (7.4-10.4); RBC 5.14 10x6/uL (4.20-6.10); WBC 6.5 10x3/uL (4.8-10.8)
[2018-11-15 12:14] LABS: APTT 28.9 SECONDS (22.8-39.4); INR 1.02 (0.85-1.17); PROTIME 12.9 SECONDS (11.6-15.0)
[2018-11-15 12:57] LABS: CALC OSMOLALITY 291 mosm/kg (275-300); CALCIUM 8.7 mg/dL (8.5-10.1); CARBON DIOXIDE 34.6 mmol/L (21.0-32.0); CHLORIDE - SERUM 104 mmol/L (98-107); CREATININE - SERUM 0.9 mg/dL (0.6-1.3); GLUCOSE 104 mg/dL (74-106); POTASSIUM - SERUM 3.7 mmol/L (3.5-5.1); SODIUM 145 mmol/L (136-145); UREA NITROGEN 22 mg/dL (7-18); eGFR NON AFRICAN AMERICAN 87 mL/min (90-120)
[2018-11-15] MEDS ORDERED: HYDROCODON-ACE1 EA10 PO (13:56)
--- NOTE | 2018-11-15 14:10 | NUR ---
PT RECEIVED VIA STRETCHER FROM OPERATOR SPECIALIST COMMUNICATIONS FOR RECOVERY POST PACEMAKER GEN EXCHANGE. IV PATENT INFUSING VIA ORDERS. PT PLACED ON CARDIAC MONITORS. HR PACED AT 70, BP 128/74, RR 10. O2 SAT 93 ON ROOM AIR. DRESSING TO UPPER L CHEST, CDI. PT DENIES PAIN OR DISCOMFORT. SIPS OF WATER GIVEN. CALL LIGHT IN REACH
--- NOTE | 2018-11-15 14:36 | NUR ---
PT SITTING UP IN BED, ADAN FROM [employer] AT BS CHECKING PACEMAKER. SANDWICH TRAY AND DRINK SERVED. CHEST DRESSING REMAINS CDI. VSS. CALL LIGHT IN REACH
--- NOTE | 2018-11-15 14:55 | NUR ---
IV REMOVED W CATH INTACT. DISCHARGE INSTRUCTIONS REVIEWED W PT AND HE VERBALIZED UNDERSTANDING. VSS. CHEST DRESSING REMAINS CDI. PT UP TO DRESS FOR DISCHARGE.
--- NOTE | 2018-11-15 15:09 | NUR ---
PT DISCHARGED TO PRIVATE VEHICLE TO FRIEND WAITING. PT HAD ALL BELONGINGS AND DISCHARGE INFORMATION IN HAND
--- NOTE | 2018-12-01 13:49 | OP ---
PATIENT NAME: PAUL ANDRADE III MEDICAL RECORD: [id number] :42 LOCATION:D.CAT ADMISSION DATE: SURGEON: FALLON RUSS MD DATE OF OPERATION: 11/15/2018 PREOPERATIVE DIAGNOSES: 1. End-of-life automatic implantable cardioverter-defibrillator generator. 2. Coronary artery disease. 3. Hypertension. 4. Hyperlipidemia. 5. Chronic heart failure, undifferentiated. 6. Cardiomyopathy. POSTOPERATIVE DIAGNOSES: 1. End-of-life automatic implantable cardioverter-defibrillator generator. 2. Coronary artery disease. 3. Hypertension. 4. Hyperlipidemia. 5. Chronic heart failure, undifferentiated. 6. Cardiomyopathy. PROCEDURE: Left 3-lead AICD replaced generator exchange. SURGEON: Fallon Russ MD REPORT OF PROCEDURE: The patient's left chest was prepped and draped in sterile fashion. A 20 mL of 1% lidocaine with epinephrine was infused into the surrounding tissues. A skin incision was made through an old scar and electrocautery was used to dissect through the subcutaneous tissues down to the AICD. The suture that was holding this in place was transected and then we eviscerated the AICD through the wound. We then disconnected the 3 leads and attached them to the new AICD generator. This was placed into the subcutaneous pouch and sutured down with a 0 Ti-Cron. We irrigated out the wound with antibiotic solution and then closed the subcutaneous tissues with interrupted 3-0 Vicryl and the skin was closed with running subcutaneous 5-0 Monocryl and dressed appropriately. COMPLICATIONS: None. CONDITION: Stable. ANESTHESIA: Local MAC. BLOOD LOSS: Minimal. TRANSINT:[id number] Voice Confirmation ID: [id number] DOCUMENT ID: [id number] OPERATIVE REPORT [id number] PAUL ANDRADE III FALLON RUSS MD at 1349 CC: HYACINTH SALAZAR [id number] DICTATION DATE: 11/15/18 1400 RN CARDIOVASCULAR: 11/15/18 2150 DEP CLI 11/15/[address] [id number]
== END 2018-11-15 15:00 | disposition home or self-care (01) ==
LOC: D.CATH 11:04
PROVIDERS: ATTEND Internal Medicine Interventional Cardiology
DX: I47.2 Ventricular tachycardia (principal); Z45.010 Encounter for checking and testing of cardiac pacemaker pulse generator [battery]; I25.10 Atherosclerotic heart disease of native coronary artery without angina pectoris; E78.5 Hyperlipidemia, unspecified; I11.0 Hypertensive heart disease with heart failure; I50.9 Heart failure, unspecified; I42.9 Cardiomyopathy, unspecified